=== PATIENT | female | born 1945 ===

== ENCOUNTER 2017-07-30 22:26 | Emergency (ER) | payer MEDICARE ==
[2017-07-30 22:32] VITALS: BMI 25.0
--- NOTE | 2017-07-30 22:53 | ED PDOC ---
Arrival/HPI - General Chief Complaint: Chest Pain Time Seen by Provider: 07/30/17 22:26 Historian: Patient - History of Present Illness Narrative History of Present Illness (Text): 07/30/17 22:54 A 71 year old female presents to the emergency department for evaluation of onset chest discomfort this evening. Patient describes it as pressure, not associated with any shortness of breath. Patient denies any history of fever, chills, cough. Patient denies any leg pain or back pain. Patient states she is not on prescribed medications. Patient also reports history of numbness sensation to her toes for months. Denies any history of any trauma. No difficulty ambulating. Denies any other complaints at this time. Symptom Onset: Sudden Symptom Course: Unchanged Quality: Pressure Activities at Onset: Rest Context: Home Past Medical History - Provider Review Nursing Documentation Reviewed: Yes - Psychiatric Hx Substance Use: No - Surgical History Hx Hysterectomy: Yes Other/Comment: sx right breast - Anesthesia Hx Anesthesia: Yes Hx Anesthesia Reactions: No Hx Malignant Hyperthermia: No Family/Social History - Physician Review Nursing Documentation Reviewed: Yes Family/Social History: No Known Family HX Smoking Status: Never Smoked Hx Alcohol Use: No Hx Substance Use: No Allergies/Home Meds Allergies/Adverse Reactions: Allergies No Known Allergies Allergy (Verified 07/30/17 22:36) Home Medications: Home Meds Medication Instructions Recorded Confirmed No Known Home Med 07/30/17 07/30/17 Review of Systems - Physician Review All systems were reviewed & negative as marked: Yes - Review of Systems Constitutional: absent: Fevers, Other (chills) Respiratory: absent: SOB, Cough Cardiovascular: Other (chest discomfort) Musculoskeletal: Other (numbness sensation in toes; no leg pain). absent: Back Pain Physical Exam Vital Signs Reviewed: Yes Vital Signs Temp Pulse Resp BP Pulse Ox 07/30/17 22:32 98.3 F 75 18 122/65 98 Appearance: Positive for: Well-Appearing, Non-Toxic, Comfortable Pain Distress: None Mental Status: Positive for: Alert and Oriented X 3 - Systems Exam Head: Present: Atraumatic, Normocephalic Pupils: Present: PERRL Extroacular Muscles: Present: EOMI Conjunctiva: Present: Normal Mouth: Present: Moist Mucous Membranes Neck: Present: Normal Range of Motion Respiratory/Chest: Present: Clear to Auscultation, Good Air Exchange. No: Respiratory Distress, Accessory Muscle Use Cardiovascular: Present: Regular Rate and Rhythm, Normal S1, S2. No: Murmurs Abdomen: Present: Normal Bowel Sounds. No: Tenderness, Distention, Peritoneal Signs Back: Present: Normal Inspection Upper Extremity: Present: Normal Inspection, Normal ROM, NORMAL PULSES, Neurovascularly Intact. No: Cyanosis, Edema Lower Extremity: Present: Normal Inspection, NORMAL PULSES, Normal ROM, Neurovascularly Intact. No: Edema Neurological: Present: GCS=15, CN II-XII Intact, Speech Normal Skin: Present: Warm, Dry, Normal Color. No: Rashes Psychiatric: Present: Alert, Oriented x 3, Normal Insight, Normal Concentration Medical Decision Making ED Course and Treatment: 07/30/17 22:50 Impression: A 71 year old female with chest discomfort. Plan: -- EKG -- chest xray -- labs -- Aspirin -- Reassess and disposition Progress Notes: EKG: Ordered, reviewed, and independently interpreted the EKG. Rate : 71 BPM Rhythm : NSR Interpretation : septal infarct, age undetermined, nonspecific ST/T changes 07/30/17 23:[address] Delta Edgar, who accepts patient. 07/31/17 00:24 Chest xray: No acute process, as read by me. - Lab Interpretations Lab Results: 07/30/17 22:50 07/30/17 22:50 Lab Results 07/30/17 22:50: WBC 12.4 H, RBC 4.07, Hgb 10.9 L, Hct 33.2 L, MCV 81.6, MCH 26.8 , MCHC 32.8, RDW 14.7 H, Plt Count 222, MPV 10.9 07/30/17 22:50: Sodium 140, Potassium 3.7, Chloride 104, Carbon Dioxide 24, Anion Gap 15, BUN 20, Creatinine 0.9, Est GFR ( Amer) > 60, Est GFR (Non- Af Amer) > 60, Random Glucose 147 H, Calcium 9.2, Total Bilirubin 0.3, AST 25, ALT 25, Alkaline Phosphatase 90, Lactate Dehydrogenase 336, Total Creatine Kinase 67, Troponin I < 0.01, Total Protein 7.2, Albumin 3.9, Globulin 3.3, Albumin/Globulin Ratio 1.2 07/30/17 22:50: PT 12.0, INR 1.10 H, APTT 28.0 I have reviewed the lab results: Yes - RAD Interpretation Radiology Orders: 07/30/17 22:45 CHEST PORTABLE [RAD] Stat - EKG Interpretation Interpreted by ED Physician: Yes Type: 12 lead EKG - Medication Orders Current Medication Orders: Discontinued Medications Aspirin (Aspirin) 325 mg PO ONCE STA Stop: 07/30/17 22:47 Last Admin: 07/30/17 23:06 Dose: 325 mg - Scribe Statement The provider has reviewed the documentation as recorded by the Joycelyn Wyman Provider Scribe Attestation: All medical record entries made by the Joycelyn were at my direction and personally dictated by me. I have reviewed the chart and agree that the record accurately reflects my personal performance of the history, physical exam, medical decision making, and the department course for this patient. I have also personally directed, reviewed, and agree with the discharge instructions and disposition. Disposition/Present on Arrival - Present on Arrival Any Indicators Present on Arrival: No History of DVT/PE: No History of Uncontrolled Diabetes: No Urinary Catheter: No History of Decub. Ulcer: No History Surgical Site Infection Following: None - Disposition Have Diagnosis and Disposition been Completed?: Yes Diagnosis: Chest pain Disposition: HOSPITALIZED Disposition Time: 23:58 Patient Plan: Observation Patient Problems: Current Active Problems Problem Status Onset Chest pain Acute Condition: STABLE
[2017-07-30 23:06] LABS: HEMATOCRIT 33.2 % (36.0-48.0); MEAN CELL VOLUME 81.6 fl (80.0-105.0); MEAN CORPUSCULAR HEMOGLOBIN 26.8 pg (25.0-35.0); MEAN CORPUSCULAR HGB CONC 32.8 g/dl (31.0-37.0); MEAN PLATELET VOLUME 10.9 fl (7.0-11.0); RED CELL DISTRIBUTION WIDTH 14.7 % (11.5-14.5); WHITE BLOOD COUNT 12.4 10^3/ul (4.5-11.0)
[2017-07-30 23:13] LABS: ALB/GLOB RATIO 1.2 (1.1-1.8); ALKALINE PHOSPHATASE 90 U/L (38-126); ALT/SGPT 25 U/L (7-56); AST/SGOT 25 U/L (14-36); BILIRUBIN,TOTAL 0.3 mg/dL (0.2-1.3); BLOOD UREA NITROGEN 20 mg/dL (7-21); CALCIUM 9.2 mg/dL (8.4-10.5); CARBON DIOXIDE 24 mmol/L (21-33); CHLORIDE 104 mmol/L (98-107); GFR AFRICAN-AMERICAN > 60; GLUCOSE,RANDOM 147 mg/dL (70-110); POTASSIUM 3.7 mmol/L (3.6-5.0); SODIUM 140 mmol/L (132-148); TOTAL PROTEIN 7.2 g/dL (5.8-8.3)
[2017-07-30 23:22] LABS: INR 1.1 (0.93-1.08)
[2017-07-30 23:23] LABS: TROPONIN I < 0.01 ng/mL
--- NOTE | 2017-07-31 00:43 | CP.PCM.HP ---
<Lia Tanner - Last Filed: 07/31/17 01:46> History of Present Illness - History of Present Illness History of Present Illness: 71 year old female with no reported medical history who presents with chest pain at 4:00 PM. Patient reports she had been lifting a lot of bags from shopping recently and after she took a shower she developed some diffuse chest pain, constant in nature, without radiation, pressure-like in character, scaled 7/10 in severity, that improved with taking aspirin. The chest pain was not related to exertion, associated with dyspnea, or diaphoresis; however, it was associated with blurry vision, and preceded by paresthesias in her left foot and right hand. At the time of my encounter, she reports improvement in her symptoms. Other symptoms the patient mentioned were increased in urinary frequency and increase in passing bowel movements, but not diarrhea. PMD: Dr. Ramos Past Surgical History: Right lumpectomy (benign mass), hysterectomy Past Medical History: Denies Social History: Denies alcohol, smoking, or illicit drug use. Family History: Mother had dementia, paternal side suffered from stroke Present on Admission - Present on Admission Any Indicators Present on Admission: No Review of Systems - EENT Eyes: Blurred Vision - Cardiovascular Cardiovascular: Chest Pain. absent: Dyspnea on Exertion, Irregular Heart Rhythm , Leg Edema - Respiratory Respiratory: absent: Cough, Dyspnea, Dyspnea on Exertion - Gastrointestinal Gastrointestinal: Bloating. absent: Nausea, Vomiting - Genitourinary Genitourinary: Urinary Frequency - Musculoskeletal Additional comments: chest wall pain - Integumentary Integumentary: absent: Acne, Alopecia, Change in Pigmentation, Pruritus - Neurological Neurological: Burning Sensations (left foot and right hand). absent: Abnormal Gait - Psychiatric Psychiatric: absent: Anhedonia, Anxiety, Change in Appetite, Difficulty Concentrating - Endocrine Endocrine: absent: Change in Libido, Deepening of Voice, Excessive Sweating - Hematologic/Lymphatic Hematologic: absent: Easy Bleeding, Easy Bruising Past Patient History - Past Social History Smoking Status: Never Smoked - PSYCHIATRIC Hx Substance Use: No - SURGICAL HISTORY Hx Hysterectomy: Yes Other/Comment: sx right breast - ANESTHESIA Hx Anesthesia: Yes Hx Anesthesia Reactions: No Hx Malignant Hyperthermia: No Meds Home Medications: Home Medication List Medication Instructions Recorded Confirmed Type Aspirin 81 mg PO DAILY #15 tab.chew 07/31/17 Rx Nitroglycerin [Nitrostat SL Tab] 0.3 mg SL Q5M #3 tab.subl 07/31/17 Rx Pantoprazole Sodium [Protonix] 40 mg PO DAILY #15 ect 07/31/17 Rx Allergies/Adverse Reactions: Allergies Allergy/AdvReac Type Severity Reaction Status Date / Time No Known Allergies Allergy Verified 07/30/17 22:36 Physical Exam - Constitutional Appears: Well - Head Exam Head Exam: ATRAUMATIC, NORMOCEPHALIC - Eye Exam Eye Exam: EOMI, Normal appearance - ENT Exam ENT Exam: Mucous Membranes Moist, Normal Oropharynx - Neck Exam Neck exam: Positive for: Normal Inspection - Respiratory Exam Respiratory Exam: Clear to Auscultation Bilateral, NORMAL BREATHING PATTERN. absent: Rales - Cardiovascular Exam Cardiovascular Exam: RRR, +S1, +S2 Additional comments: point tenderness to palpation of sternoclavicular region - GI/Abdominal Exam GI & Abdominal Exam: Normal Bowel Sounds, Soft - Extremities Exam Extremities exam: Positive for: normal inspection. Negative for: calf tenderness, joint swelling, pedal edema - Back Exam Back exam: NORMAL INSPECTION. absent: CVA tenderness (L), CVA tenderness (R) - Neurological Exam Neurological exam: Alert, CN II-XII Intact, Normal Gait, Oriented x3 - Psychiatric Exam Psychiatric exam: Normal Affect, Normal Mood - Skin Skin Exam: Dry, Intact, Normal Color, Warm Results - Vital Signs Recent Vital Signs: Last Vital Signs Temp 98.3 F 07/30/17 22:32 Pulse 75 07/30/17 22:32 Resp 18 07/30/17 22:32 BP 122/65 07/30/17 22:32 Pulse Ox 98 07/30/17 22:32 - Labs Result Diagrams: 07/30/17 22:50 07/30/17 22:50 - EKG Data EKG shows normal: Sinus rhythm - EKG Data EKG comments: NSR with moderate voltage criteria for LVH Assessment & Plan - Assessment and Plan (Free Text) Assessment: 71 year old female with no known past medical history who presents with atypical chest pain. Plan: 1) Chest pain, rule out ACS - EKG showed no acute ST-T wave changes - Chest X-ray unremarkable (interpreted by me) - Initial troponin (-), follow up x 2 ordered - TSH, Free T4, and lipid panel within normal limits - HgbA1c pending - Cardiology consulted - Motrin 650 q6h PRN for pain 2) Leukocytosis: WBC of 12,000 without differential - UA and urine culture ordered, patient did complain of polyuria and increase in # of BM per day - Repeat CBC with differential ordered in morning - Afebrile, without upper respiratory complaints. 3) Nutrition - Heart Healthy Diet 4) DVT/GI prophylaxis - Lovenox 30 mg SC daily - Protonix 20 mg PO daily - Date & Time Date: 07/31/17 Time: 01:18 <Tung Edgar - Last Filed: 08/01/17 06:35> Results - Vital Signs Recent Vital Signs: Last Vital Signs Temp 98.3 F 07/30/17 22:32 Pulse 67 07/31/17 02:30 Resp 18 07/31/17 02:30 BP 113/59 L 07/31/17 02:30 Pulse Ox 96 07/31/17 02:30 - Labs Result Diagrams: 07/30/17 22:50 07/30/17 22:50 Additional Comments - Additional Comments Additional Comments: pt with no pmhx came to the er for c/o cp rt sided and left lower costal region ,pt states she was out shopping and lifting heavy things and the pain started at 2pm constant , no associated symtoms , paind is somewhat relieved now with asprin also is c/o frequent urination and increased no of bowel movement nl consultancy.pt is is tender in the chest area,and is found to have normocytic normochromic anemia. and elevated wbc . called lab for diff. and called the er nurse for u/a. the pt has musculoskeletal cp , and will give pain meds and w/u for cad.will hold antibitics pending result of u/a and procalcitonin.
[2017-07-31 00:52] LABS: CHOLESTEROL 146 mg/dL (130-200)
[2017-07-31 01:11] LABS: FREE T4 0.82 ng/dL (0.78-2.19)
[2017-07-31 01:25] LABS: THYROID STIMULATING HORMONE 3.45 mIU/mL (0.46-4.68)
[2017-07-31] MEDS ORDERED: Pantoprazole 20 mg EC Tab PO SCH (06:00)
[2017-07-31 06:47] LABS: RETIC% 1.35 % (0.5-1.5)
[2017-07-31 06:53] LABS: IRON 58 ug/dL (45-180)
[2017-07-31 08:16] LABS: URINE BILIRUBIN NEGATIVE (NEGATIVE); URINE BLOOD TRACE-LYSED (NEGATIVE); URINE GLUCOSE (UA) NEGATIVE (NEGATIVE); URINE KETONE NEGATIVE (NEGATIVE); URINE LEUKOCYTE ESTERASE MODERATE Leu/uL (NEGATIVE); URINE PROTEIN NEGATIVE mg/dL (<30 mg/dL); URINE UROBILINOGEN 0.2 E.U./dL (<1 E.U./dL)
[2017-07-31 08:20] LABS: URINE APPEARANCE SL CLOUDY (CLEAR); URINE COLOR LIGHT YELLOW (YELLOW)
[2017-07-31 08:22] LABS: URINE RBC 0 - 2 /hpf (0-2)
[2017-07-31 08:23] LABS: URINE BACTERIA FEW (NEG)
[2017-07-31 08:31] VITALS: TEMP 97.8
[2017-07-31] MEDS ORDERED: Enoxaparin 30 mg Syringe SC SCH (10:00)
[2017-07-31 11:25] VITALS: RESP 17
[2017-07-31 13:34] VITALS: BP 130/82; PULSE 70; O2SAT 98
--- NOTE | 2017-07-31 15:00 | CP.PCM.DIS ---
<Vishal Carias - Last Filed: 07/31/17 14:52> Provider - Provider Primary care physician: Salvatore Ramos MD Consults: Cardio: Maximiliankind Time Spent in preparation of Discharge (in minutes): 45 Hospital Course - Lab Results Lab Results: Most Recent Lab Values WBC 12.4 10^3/ul (4.5-11.0) H 07/30/17 22:50 RBC 4.07 10^6/uL (3.5-6.1) 07/30/17 22:50 Hgb 10.9 g/dL (12.0-16.0) L 07/30/17 22:50 Hct 33.2 % (36.0-48.0) L 07/30/17 22:50 MCV 81.6 fl (80.0-105.0) 07/30/17 22:50 MCH 26.8 pg (25.0-35.0) 07/30/17 22:50 MCHC 32.8 g/dl (31.0-37.0) 07/30/17 22:50 RDW 14.7 % (11.5-14.5) H 07/30/17 22:50 Plt Count 222 10^3/uL (120.0-450.0) 07/30/17 22:50 MPV 10.9 fl (7.0-11.0) 07/30/17 22:50 Retic Count 1.35 % (0.5-1.5) 07/31/17 06:20 PT 12.0 SECONDS (9.4-12.5) 07/30/17 22:50 INR 1.10 (0.93-1.08) H 07/30/17 22:50 APTT 28.0 Seconds (25.1-36.5) 07/30/17 22:50 Sodium 140 mmol/L (132-148) 07/30/17 22:50 Potassium 3.7 mmol/L (3.6-5.0) 07/30/17 22:50 Chloride 104 mmol/L (98-107) 07/30/17 22:50 Carbon Dioxide 24 mmol/L (21-33) 07/30/17 22:50 Anion Gap 15 (10-20) 07/30/17 22:50 BUN 20 mg/dL (7-21) 07/30/17 22:50 Creatinine 0.9 mg/dl (0.7-1.2) 07/30/17 22:50 Est GFR ( Amer) > 60 07/30/17 22:50 Est GFR (Non-Af Amer) > 60 07/30/17 22:50 Random Glucose 147 mg/dL (70-110) H 07/30/17 22:50 Hemoglobin A1c 6.3 % (4.2-6.5) 07/30/17 22:50 Calcium 9.2 mg/dL (8.4-10.5) 07/30/17 22:50 Iron 58 ug/dL (45-180) 07/31/17 06:20 TIBC 291 ug/dL (265-497) 07/31/17 06:20 % Saturation 20 % (20-55) 07/31/17 06:20 Transferrin 251.92 mg/dL (206-381) 07/31/17 05:40 Total Bilirubin 0.3 mg/dL (0.2-1.3) 07/30/17 22:50 AST 25 U/L (14-36) 07/30/17 22:50 ALT 25 U/L (7-56) 07/30/17 22:50 Alkaline Phosphatase 90 U/L (38-126) 07/30/17 22:50 Lactate Dehydrogenase 336 U/L (333-699) 07/30/17 22:50 Total Creatine Kinase 67 U/L (35-230) 07/30/17 22:50 Troponin I < 0.01 ng/mL 07/31/17 12:40 Total Protein 7.2 g/dL (5.8-8.3) 07/30/17 22:50 Albumin 3.9 g/dL (3.0-4.8) 07/30/17 22:50 Globulin 3.3 gm/dL 07/30/17 22:50 Albumin/Globulin Ratio 1.2 (1.1-1.8) 07/30/17 22:50 Triglycerides 132 mg/dL (35-160) 07/30/17 22:50 Cholesterol 146 mg/dL (130-200) 07/30/17 22:50 LDL Cholesterol Direct 94 mg/dL (0-129) 07/30/17 22:50 HDL Cholesterol 34 mg/dL (29-60) 07/30/17 22:50 Vitamin B12 513 pg/mL (239-931) 07/31/17 06:20 Procalcitonin < 0.05 NG/ML (0.19-0.49) L 07/31/17 05:40 Free T4 0.82 ng/dL (0.78-2.19) 07/30/17 22:50 TSH 3rd Generation 3.45 mIU/mL (0.46-4.68) 07/30/17 22:50 Urine Color Light yellow (YELLOW) 07/31/17 08:01 Urine Appearance Sl cloudy (CLEAR) 07/31/17 08:01 Urine pH 6.0 (4.7-8.0) 07/31/17 08:01 Ur Specific [place] 1.010 (1.005-1.035) 07/31/17 08:01 Urine Protein Negative mg/dL (<30 mg/dL) 07/31/17 08:01 Urine Glucose (UA) Negative mg/dL (NEGATIVE) 07/31/17 08:01 Urine Ketones Negative mg/dL (NEGATIVE) 07/31/17 08:01 Urine Blood Trace-lysed (NEGATIVE) H 07/31/17 08:01 Urine Nitrate Negative (NEGATIVE) 07/31/17 08:01 Urine Bilirubin Negative (NEGATIVE) 07/31/17 08:01 Urine Urobilinogen 0.2 E.U./dL (<1 E.U./dL) 07/31/17 08:01 Ur Leukocyte Esterase Moderate Gretchen/uL (NEGATIVE) H 07/31/17 08:01 Urine RBC 0 - 2 /hpf (0-2) 07/31/17 08:01 Urine WBC 5 - 10 /hpf (0-6) 07/31/17 08:01 Ur Epithelial Cells 1 - 3 /hpf (0-5) 07/31/17 08:01 Urine Bacteria Few (NEG) 07/31/17 08:01 - Hospital Course Hospital Course: 71 year old female with no reported medical history who presents with chest pain at 4:00 PM prior to admission. Patient reported she had been lifting a lot of bags from shopping recently and after she took a shower she developed some diffuse chest pain, constant in nature, without radiation, pressure-like in character, scaled 7/10 in severity, that improved with taking aspirin. The chest pain was not related to exertion, associated with dyspnea, or diaphoresis ; however, it was associated with blurry vision, and preceded by paresthesias in her left foot and right hand. Pt was evaluated for chest pain to rule out acute coronary syndrome. Troponin was negative x3. EKG showed no ST-T wave abnormalities. Cardio was consulted and recommended outpatient stress test and echo. As the patient was acute coronary syndrome was ruled out and pt was medically stable, she was discharged. Patient was instructed to take new medications as prescribed and to follow up with her PMD and university relations recruiter for outpatient work up. Pt acknowledged and agreed. Discharge Diagnosis - Chest pain, ACS ruled out - Possible GERD vs angina Discharge Medications - ASA 81 mg daily - Protonix 40 mg daily - Nitroglycerin 0.3 mg tab SL q5min Discharge Exam - Head Exam Head Exam: ATRAUMATIC, NORMOCEPHALIC - Eye Exam Eye Exam: Normal appearance - ENT Exam ENT Exam: Normal Exam - Respiratory Exam Respiratory Exam: Clear to PA & Lateral. absent: Rales, Rhonchi, Wheezes - Cardiovascular Exam Cardiovascular Exam: RRR, +S1, +S2. absent: Diastolic murmur, Gallop, Rubs, Systolic Murmur - GI/Abdominal Exam GI & Abdominal Exam: Soft. absent: Distended, Firm, Guarding, Rebound, Tenderness - Extremities Exam Extremities exam: normal inspection - Neurological Exam Neurological exam: Alert, Oriented x3 - Psychiatric Exam Psychiatric exam: Normal Affect, Normal Mood - Skin Skin Exam: Dry, Intact, Normal Color, Warm Discharge Plan - Discharge Medications Prescriptions: Aspirin 81 mg PO DAILY #15 tab.chew Nitroglycerin [Nitrostat SL Tab] 0.3 mg SL Q5M #3 tab.subl Pantoprazole Sodium [Protonix] 40 mg PO DAILY #15 ect - Follow Up Plan Condition: STABLE Disposition: HOSPITALIZED Instructions: Chest Pain (DC), Chest Pain (GEN) Additional Instructions: 1. F/u with PMD within 1 week of discharge 2. F/u with university relations recruiter within 1 week of discharge for outpatient stress test and echocardiogram 3. Can continue ASA use as needed 4. Return to ED if symptoms worsen Referrals: Salvatore Ramos MD [Primary Care Provider] - Lionel Nguyen MD [Staff Provider] - <Andrey Bernal - Last Filed: 07/31/17 16:15> Provider - Provider Primary care physician: Salvatore Ramos MD Hospital Course - Lab Results Lab Results: Most Recent Lab Values WBC 12.4 10^3/ul (4.5-11.0) H 07/30/17 22:50 RBC 4.07 10^6/uL (3.5-6.1) 07/30/17 22:50 Hgb 10.9 g/dL (12.0-16.0) L 07/30/17 22:50 Hct 33.2 % (36.0-48.0) L 07/30/17 22:50 MCV 81.6 fl (80.0-105.0) 07/30/17 22:50 MCH 26.8 pg (25.0-35.0) 07/30/17 22:50 MCHC 32.8 g/dl (31.0-37.0) 07/30/17 22:50 RDW 14.7 % (11.5-14.5) H 07/30/17 22:50 Plt Count 222 10^3/uL (120.0-450.0) 07/30/17 22:50 MPV 10.9 fl (7.0-11.0) 07/30/17 22:50 Retic Count 1.35 % (0.5-1.5) 07/31/17 06:20 PT 12.0 SECONDS (9.4-12.5) 07/30/17 22:50 INR 1.10 (0.93-1.08) H 07/30/17 22:50 APTT 28.0 Seconds (25.1-36.5) 07/30/17 22:50 Sodium 140 mmol/L (132-148) 07/30/17 22:50 Potassium 3.7 mmol/L (3.6-5.0) 07/30/17 22:50 Chloride 104 mmol/L (98-107) 07/30/17 22:50 Carbon Dioxide 24 mmol/L (21-33) 07/30/17 22:50 Anion Gap 15 (10-20) 07/30/17 22:50 BUN 20 mg/dL (7-21) 07/30/17 22:50 Creatinine 0.9 mg/dl (0.7-1.2) 07/30/17 22:50 Est GFR ( Amer) > 60 07/30/17 22:50 Est GFR (Non-Af Amer) > 60 07/30/17 22:50 Random Glucose 147 mg/dL (70-110) H 07/30/17 22:50 Hemoglobin A1c 6.3 % (4.2-6.5) 07/30/17 22:50 Calcium 9.2 mg/dL (8.4-10.5) 07/30/17 22:50 Iron 58 ug/dL (45-180) 07/31/17 06:20 TIBC 291 ug/dL (265-497) 07/31/17 06:20 % Saturation 20 % (20-55) 07/31/17 06:20 Transferrin 251.92 mg/dL (206-381) 07/31/17 05:40 Total Bilirubin 0.3 mg/dL (0.2-1.3) 07/30/17 22:50 AST 25 U/L (14-36) 07/30/17 22:50 ALT 25 U/L (7-56) 07/30/17 22:50 Alkaline Phosphatase 90 U/L (38-126) 07/30/17 22:50 Lactate Dehydrogenase 336 U/L (333-699) 07/30/17 22:50 Total Creatine Kinase 67 U/L (35-230) 07/30/17 22:50 Troponin I < 0.01 ng/mL 07/31/17 12:40 Total Protein 7.2 g/dL (5.8-8.3) 07/30/17 22:50 Albumin 3.9 g/dL (3.0-4.8) 07/30/17 22:50 Globulin 3.3 gm/dL 07/30/17 22:50 Albumin/Globulin Ratio 1.2 (1.1-1.8) 07/30/17 22:50 Triglycerides 132 mg/dL (35-160) 07/30/17 22:50 Cholesterol 146 mg/dL (130-200) 07/30/17 22:50 LDL Cholesterol Direct 94 mg/dL (0-129) 07/30/17 22:50 HDL Cholesterol 34 mg/dL (29-60) 07/30/17 22:50 Vitamin B12 513 pg/mL (239-931) 07/31/17 06:20 Procalcitonin < 0.05 NG/ML (0.19-0.49) L 07/31/17 05:40 Free T4 0.82 ng/dL (0.78-2.19) 07/30/17 22:50 TSH 3rd Generation 3.45 mIU/mL (0.46-4.68) 07/30/17 22:50 Urine Color Light yellow (YELLOW) 07/31/17 08:01 Urine Appearance Sl cloudy (CLEAR) 07/31/17 08:01 Urine pH 6.0 (4.7-8.0) 07/31/17 08:01 Ur Specific [place] 1.010 (1.005-1.035) 07/31/17 08:01 Urine Protein Negative mg/dL (<30 mg/dL) 07/31/17 08:01 Urine Glucose (UA) Negative mg/dL (NEGATIVE) 07/31/17 08:01 Urine Ketones Negative mg/dL (NEGATIVE) 07/31/17 08:01 Urine Blood Trace-lysed (NEGATIVE) H 07/31/17 08:01 Urine Nitrate Negative (NEGATIVE) 07/31/17 08:01 Urine Bilirubin Negative (NEGATIVE) 07/31/17 08:01 Urine Urobilinogen 0.2 E.U./dL (<1 E.U./dL) 07/31/17 08:01 Ur Leukocyte Esterase Moderate Gretchen/uL (NEGATIVE) H 07/31/17 08:01 Urine RBC 0 - 2 /hpf (0-2) 07/31/17 08:01 Urine WBC 5 - 10 /hpf (0-6) 07/31/17 08:01 Ur Epithelial Cells 1 - 3 /hpf (0-5) 07/31/17 08:01 Urine Bacteria Few (NEG) 07/31/17 08:01 Attending/Attestation - Attestation I have personally seen and examined this patient.: Yes I have fully participated in the care of the patient.: Yes I have reviewed all pertinent clinical information, including history, physical exam and plan: Yes Notes (Text): 07/31/17 16:12 Patient was seen and examined with medical records supervisor. Agreed with resident assessment and plan. 71 year old female with no reported medical history was admitted with atypical chest pain.EKG is negative for ischemic changes.Serial troponins are normal.Patient was evaluated by cardiology, out patient stress test has been recommended.Patient will be discharged home and will follow up with PCP and cardiology Management plan was discussed in detail with patient Education was provided.
--- NOTE | 2017-07-31 16:46 | RAD ---
HISTORY: chest pain COMPARISON: No prior. FINDINGS: LUNGS: No active pulmonary disease. PLEURA: No significant pleural effusion identified, no pneumothorax apparent. CARDIOVASCULAR: Normal. OSSEOUS STRUCTURES: No significant abnormalities. VISUALIZED UPPER ABDOMEN: Normal. OTHER FINDINGS: None. IMPRESSION: No active disease.
--- NOTE | 2017-07-31 16:53 | CARD ---
APPROVED REPORT EKG Measurement Heart [id number] <Conclusion> Normal sinus rhythm Minimal voltage criteria for LVH, may be normal variant Septal infarct, age undetermined Abnormal ECG
== END 2017-07-31 13:35 | disposition short-term general hospital (02) ==
LOC: MERGE 22:26 → ED 22:26 → UNDOADMOB 23:56 → ERH 23:56
DX: R07.9 Chest pain, unspecified (principal)

== ENCOUNTER 2017-10-17 20:03 | Inpatient (IN) | payer MEDICARE ==
--- NOTE | 2017-10-17 20:26 | ED PDOC ---
Arrival/HPI - General Chief Complaint: Abdominal Pain Time Seen by Provider: 10/17/17 20:03 Historian: Patient - History of Present Illness Narrative History of Present Illness (Text): 10/17/17 20:25 A 71 year old female, whose past medical history includes osteoporosis and possible TIA, presents to the emergency department complaining of dizziness and near-syncope earlier this evening. Patient also notes mild left lower abdominal pain.States she has not been feeling well past 3 days and stopped taking any medication.Patient denies any fever, nausea, vomiting, diarrhea, chest pain, shortness of breath, neck pain, back pain, headache, extremity weakness, speech changes, visual disturbances or any other complaints. Time/Duration: Other (today) Symptom Course: Unchanged Quality: Other Context: Home Past Medical History - Provider Review Nursing Documentation Reviewed: Yes - Gastrointestinal Hx Colitis: Yes - Psychiatric Hx Substance Use: No - Surgical History Hx Hysterectomy: Yes Other/Comment: sx right breast - Anesthesia Hx Anesthesia: Yes Hx Anesthesia Reactions: No Hx Malignant Hyperthermia: No Family/Social History - Physician Review Nursing Documentation Reviewed: Yes Family/Social History: No Known Family HX Smoking Status: Never Smoked Hx Alcohol Use: No Hx Substance Use: No Allergies/Home Meds Allergies/Adverse Reactions: Allergies No Known Allergies Allergy (Verified 06/20/15 03:42) Home Medications: Home Meds Medication Instructions Recorded Confirmed Atorvastatin [Lipitor] 10 mg PO DIN 10/17/17 10/17/17 Clopidogrel [Plavix] 75 mg PO DAILY 10/17/17 10/17/17 Losartan Potassium 25 mg PO DAILY 10/17/17 10/17/17 methylPREDNISolone 4 mg PO DAILY 10/17/17 10/17/17 [Methylprednisolone] Review of Systems - Physician Review All systems were reviewed & negative as marked: Yes - Review of Systems Constitutional: absent: Fevers, Night Sweats Eyes: absent: Vision Changes Respiratory: absent: SOB Cardiovascular: Other (near-syncope). absent: Chest Pain Gastrointestinal: Abdominal Pain (left lower abdomen). absent: Diarrhea, Nausea , Vomiting Musculoskeletal: absent: Back Pain, Neck Pain Neurological: Dizziness. absent: Headache, Focal Weakness, Speech Changes Physical Exam Vital Signs Reviewed: Yes Vital Signs Temp Pulse Resp BP Pulse Ox 10/17/17 20:16 97.8 F 72 18 131/61 97 Temperature: Afebrile Blood Pressure: Normal Pulse: Regular Respiratory Rate: Normal Appearance: Positive for: Well-Appearing, Non-Toxic, Comfortable Pain Distress: None Mental Status: Positive for: Alert and Oriented X 3 - Systems Exam Head: Present: Atraumatic, Normocephalic Pupils: Present: PERRL Extroacular Muscles: Present: EOMI Conjunctiva: Present: Normal Mouth: Present: Moist Mucous Membranes Neck: Present: Normal Range of Motion Respiratory/Chest: Present: Clear to Auscultation, Good Air Exchange. No: Respiratory Distress, Accessory Muscle Use Cardiovascular: Present: Regular Rate and Rhythm, Normal S1, S2. No: Murmurs Abdomen: Present: Tenderness (LLQ tenderness to palpation), Normal Bowel Sounds. No: Distention, Peritoneal Signs, Rebound, Guarding Back: Present: Normal Inspection Upper Extremity: Present: Normal Inspection. No: Cyanosis, Edema Lower Extremity: Present: Normal Inspection. No: Edema Neurological: Present: GCS=15, CN II-XII Intact, Speech Normal Skin: Present: Warm, Dry, Normal Color. No: Rashes Psychiatric: Present: Alert, Oriented x 3, Normal Insight, Normal Concentration Medical Decision Making ED Course and Treatment: 10/17/17 20:25 Impression: A 71 year old female with dizziness and near-syncope. Patient also notes mild left lower abdominal discomfort. Plan: -- Head CT -- Abdomen and pelvis CT -- Chest xray -- EKG -- Labs -- Urinalysis -- Lactated ringer -- Reassess and disposition Progress Notes: Reviewed EKG, NSR at [address] bpm. LVH. Non-specific ST/T wave changes. 10/18/17 01:04 CT Head shows: Brain: Mild cerebral and cerebellar volume loss. Minimal hypodensity is seen in the periventricular cerebral white matter. No hemorrhage. Ventricles: Prominent ventricles. Bones/joints: Unremarkable. No acute fracture. Soft tissues: Unremarkable. Sinuses: Unremarkable. No acute sinusitis. Mastoid air cells: Unremarkable. No mastoid effusion. IMPRESSION: No evidence of an acute intracranial hemorrhage, midline shift or mass effect is identified. 10/18/17 01:07 CT Abdomen and Pelvis shows; Lower thorax: There is bibasilar atelectasis. Small hiatal hernia. ABDOMEN: Liver: Fatty liver. Gallbladder and bile ducts: Cholecystectomy. Pancreas: Unremarkable. No mass. No ductal dilation. Spleen: Unremarkable. No splenomegaly. Adrenals: Unremarkable. No mass. Kidneys and ureters: Unremarkable. No solid mass. No hydronephrosis. Stomach and bowel: Moderate amount of stool in the colon. There are nonspecific fluid filled stomach, small bowel loops. These findings can represent ileus versus gastroenteritis/enteritis versus slow transit versus peristalsis. No obstruction. Appendix: Normal appendix. PELVIS: Bladder: Bladder distention 10.2 cm. Correlation with patient's voiding status is recommended. Reproductive: Uterus is seen. ABDOMEN and PELVIS: Intraperitoneal space: Unremarkable. No free air. No significant fluid collection. Bones/joints: No acute fracture. No dislocation. Soft tissues: Unremarkable. Vasculature: Unremarkable. No abdominal aortic aneurysm. Lymph nodes: Unremarkable. No enlarged lymph nodes. IMPRESSION: 1. No acute findings. 10/18/17 02:[address] Tavera, who is aware and agrees with plan. Accepts pt in to her service. Pt will go to telemetry for near-syncope and UTI. Requests Dr. Brewster and Dr. Almazan on consult. - Lab Interpretations Lab Results: 10/17/17 20:22 10/17/17 20:22 Lab Results 10/17/17 20:46: Urine Color Yellow, Urine Appearance Clear, Urine pH 6.0, Ur Specific [place] 1.010, Urine Protein Negative, Urine Glucose (UA) Negative, Urine Ketones Negative, Urine Blood Trace-intact H, Urine Nitrate Negative, Urine Bilirubin Negative, Urine Urobilinogen 0.2, Ur Leukocyte Esterase Moderate H, Urine RBC 2 - 5, Urine WBC 15 - 20, Ur Epithelial Cells 4 - 5, Amorphous Sediment Few, Urine Bacteria Mod 10/17/17 20:22: WBC 16.4 H D, RBC 4.64, Hgb 12.5, Hct 37.6, MCV 81.0, MCH 26.9, MCHC 33.2, RDW 14.9 H, Plt Count 266, MPV 10.7 10/17/17 20:22: Sodium 143, Potassium 3.8, Chloride 104, Carbon Dioxide 27, Anion Gap 16, BUN 24 H, Creatinine 0.9, Est GFR ( Amer) > 60, Est GFR ( Non-Af Amer) > 60, Random Glucose 90, Calcium 9.4, Total Bilirubin 0.2, AST 30, ALT 24, Alkaline Phosphatase 97, Lactate Dehydrogenase 387, Total Creatine Kinase 29 L, Troponin I < 0.01, Total Protein 7.4, Albumin 4.0, Globulin 3.4, Albumin/Globulin Ratio 1.2 10/17/17 20:22: PT 11.8, INR 1.03, APTT 25.9 I have reviewed the lab results: Yes - RAD Interpretation Radiology Orders: 10/17/17 20:17 HEAD W/O CONTRAST [CT] Stat 10/17/17 20:18 ABD & PELVIS IV CONTRAST ONLY [CT] Stat 10/17/17 20:19 CHEST PORTABLE [RAD] Stat Creative Services Director: Radiologist - EKG Interpretation Interpreted by ED Physician: Yes Type: 12 lead EKG - Medication Orders Current Medication Orders: Ceftriaxone Sodium (Rocephin 1 Gram Ivpb) 1 gm in 100 mls @ 200 mls/hr IV ONCE STA PRN Reason: Protocol Stop: 10/18/17 02:31 Sodium Chloride (Sodium Chloride 0.9%) 1,000 mls @ 100 mls/hr IV .Q10H JOSE Discontinued Medications Lactated Ringer's (Lactated Ringer's) 1,000 mls @ 100 mls/hr IV .Q10H JOSE Last Admin: 10/17/17 20:58 Dose: 100 mls/hr eMAR Start Stop Document 10/17/17 20:58 SS (Rec: 10/17/17 20:58 SS [id number]) Intravenous Solution Start Date 10/17/17 Start Time 20:58 - Scribe Statement The provider has reviewed the documentation as recorded by the Joycelyn De Leon Provider Scribe Attestation: All medical record entries made by the Scribe were at my direction and personally dictated by me. I have reviewed the chart and agree that the record accurately reflects my personal performance of the history, physical exam, medical decision making, and the department course for this patient. I have also personally directed, reviewed, and agree with the discharge instructions and disposition. Disposition/Present on Arrival - Present on Arrival Any Indicators Present on Arrival: No History of DVT/PE: No History of Uncontrolled Diabetes: No Urinary Catheter: No History of Decub. Ulcer: No History Surgical Site Infection Following: None - Disposition Have Diagnosis and Disposition been Completed?: Yes Diagnosis: Near syncope, UTI (urinary tract infection) Disposition: HOSPITALIZED Disposition Time: 02:04 Patient Plan: Observation Condition: STABLE Referrals: [email or web address] Gio Req, [Primary Care Provider] - Follow up with primary Forms: [employer] ([employer]ive[employer])
[2017-10-17] MEDS ORDERED: Lactated Ringer's 1,000 ML IV SCH (20:30)
[2017-10-17 20:34] LABS: HEMOGLOBIN 12.5 g/dL (12.0-16.0); MEAN CORPUSCULAR HEMOGLOBIN 26.9 pg (25.0-35.0); MEAN CORPUSCULAR HGB CONC 33.2 g/dl (31.0-37.0); MEAN PLATELET VOLUME 10.7 fl (7.0-11.0); RBC 4.64 10^6/uL (3.5-6.1); RED CELL DISTRIBUTION WIDTH 14.9 % (11.5-14.5); WHITE BLOOD COUNT 16.4 10^3/ul (4.5-11.0)
[2017-10-17 20:43] LABS: INR 1.03 (0.93-1.08); PROTHROMBIN TIME 11.8 SECONDS (9.4-12.5)
[2017-10-17 20:44] LABS: PARTIAL THROMBOPLASTIN TIME 25.9 Seconds (25.1-36.5)
[2017-10-17 20:46] LABS: ALB/GLOB RATIO 1.2 (1.1-1.8); ALT/SGPT 24 U/L (7-56); AST/SGOT 30 U/L (14-36); BLOOD UREA NITROGEN 24 mg/dL (7-21); CALCIUM 9.4 mg/dL (8.4-10.5); GFR AFRICAN-AMERICAN > 60; GFR NON-AFRICAN AMERICAN > 60
[2017-10-17 20:57] LABS: TROPONIN I < 0.01 ng/mL
[2017-10-17 21:18] LABS: URINE BILIRUBIN NEGATIVE (NEGATIVE); URINE BLOOD TRACE-INTACT (NEGATIVE); URINE GLUCOSE (UA) NEGATIVE (NEGATIVE); URINE LEUKOCYTE ESTERASE MODERATE Leu/uL (NEGATIVE); URINE PROTEIN NEGATIVE mg/dL (<30 mg/dL); URINE UROBILINOGEN 0.2 E.U./dL (<1 E.U./dL)
[2017-10-17 21:19] LABS: URINE APPEARANCE CLEAR (CLEAR); URINE COLOR YELLOW (YELLOW)
[2017-10-17 21:22] LABS: URINE WBC 15 - 20 /hpf (0-6)
[2017-10-17 21:23] LABS: URINE AMORPHOUS SEDIMENT FEW; URINE BACTERIA MOD (NEG)
[2017-10-17] MEDS ORDERED: Iohexol 350 MG/100 ML VIAL ONE (21:57)
--- NOTE | 2017-10-18 01:01 | CT ---
EXAM: CT Head Without Intravenous Contrast CLINICAL HISTORY: 71 years old, female; Signs and symptoms; Dizziness; Additional info: Dizzy/near syncope TECHNIQUE: Axial computed tomography images of the head/brain without intravenous contrast. All CT scans at this facility use one or more dose reduction techniques, viz.: automated exposure control; ma/kV adjustment per patient size (including targeted exams where dose is matched to indication; i.e. head); or iterative reconstruction technique. 327 images are submitted. Coronal and sagittal reformatted images were created and reviewed. Axial reformatted images were created and reviewed. COMPARISON: No relevant prior studies available. FINDINGS: Brain: Mild cerebral and cerebellar volume loss. Minimal hypodensity is seen in the periventricular cerebral white matter. No hemorrhage. Ventricles: Prominent ventricles. Bones/joints: Unremarkable. No acute fracture. Soft tissues: Unremarkable. Sinuses: Unremarkable. No acute sinusitis. Mastoid air cells: Unremarkable. No mastoid effusion. IMPRESSION: No evidence of an acute intracranial hemorrhage, midline shift or mass effect is identified.
--- NOTE | 2017-10-18 01:05 | CT ---
EXAM: CT Abdomen and Pelvis With Intravenous Contrast CLINICAL HISTORY: 71 years old, female; Pain; Abdominal pain; Generalized; Additional info: Loer abdominal pain TECHNIQUE: Axial computed tomography images of the abdomen and pelvis with intravenous contrast. All CT scans at this facility use one or more dose reduction techniques, viz.: automated exposure control; ma/kV adjustment per patient size (including targeted exams where dose is matched to indication; i.e. head); or iterative reconstruction technique. 659 images are submitted. Coronal and sagittal reformatted images were created and reviewed. CONTRAST: 91 mL of OMNI 350 administered intravenously. COMPARISON: No relevant prior studies available. FINDINGS: Lower thorax: There is bibasilar atelectasis. Small hiatal hernia. ABDOMEN: Liver: Fatty liver. Gallbladder and bile ducts: Cholecystectomy. Pancreas: Unremarkable. No mass. No ductal dilation. Spleen: Unremarkable. No splenomegaly. Adrenals: Unremarkable. No mass. Kidneys and ureters: Unremarkable. No solid mass. No hydronephrosis. Stomach and bowel: Moderate amount of stool in the colon. There are nonspecific fluid filled stomach, small bowel loops. These findings can represent ileus versus gastroenteritis/enteritis versus slow transit versus peristalsis. No obstruction. Appendix: Normal appendix. PELVIS: Bladder: Bladder distention 10.2 cm. Correlation with patient's voiding status is recommended. Reproductive: Uterus is seen. ABDOMEN and PELVIS: Intraperitoneal space: Unremarkable. No free air. No significant fluid collection. Bones/joints: No acute fracture. No dislocation. Soft tissues: Unremarkable. Vasculature: Unremarkable. No abdominal aortic aneurysm. Lymph nodes: Unremarkable. No enlarged lymph nodes. IMPRESSION: 1. No acute findings.
[2017-10-18] MEDS: cefTRIAXone 1 gm 1 GM/100 ML BAG IV STA ×2 (02:26→02:54)
[2017-10-18] MEDS: Sodium Chloride 0.9% 1,000 ML IV SCH ×2 (03:35→13:20)
--- NOTE | 2017-10-18 08:49 | RAD ---
HISTORY: Dizziness COMPARISON: 07/31/2017 FINDINGS: LUNGS: No active pulmonary disease. PLEURA: No significant pleural effusion identified, no pneumothorax apparent. CARDIOVASCULAR: No radiographic findings to suggest acute or significant cardiovascular disease. OSSEOUS STRUCTURES: No significant abnormalities. VISUALIZED UPPER ABDOMEN: Normal. OTHER FINDINGS: None. IMPRESSION: No active disease. No significant interval change compared to the prior examination(s).
--- NOTE | 2017-10-18 12:23 | CON ---
DATE: 10/18/2017 NEUROLOGY CONSULTATION CHIEF COMPLAINT: Near syncope. HISTORY OF PRESENT ILLNESS: This is a 71-year-old woman with past medical history of osteoporosis, history of colitis in the past, on Plavix and Lipitor, came in complaining of dizziness, near syncope, lightheadedness and left abdominal pain. She denied any spinning sensation of the room, but is mostly lightheaded, has not been feeling well for the past few days, feeling more fatigue. CAT scan of the head showed no acute intracranial abnormality. CT of the abdomen showed no acute findings. She does have mild possible UTI on urinalysis with elevated leukocyte esterase, which is being worked up, currently following . No focal weakness of the extremities. Carotid Doppler has been ordered. PAST MEDICAL HISTORY: History of UTI, history of TIA, history of colitis and osteoporosis. FAMILY HISTORY: Noncontributory. SOCIAL HISTORY: No illicit drug use, smoking or EtOH abuse. ALLERGIES: NO KNOWN DRUG ALLERGIES. MEDICATIONS: Reviewed by nurse reconciliation sheet. REVIEW OF SYSTEMS: A 14-point review of systems is negative except as per the HPI. LABORATORY DATA: WBC is 16.4, hemoglobin 12.5, hematocrit of 37.6, platelet count 266. Sodium is 143, potassium 3.8, chloride of 104, carbon dioxide 27, BUN of 34, creatinine of 0.9, random glucose of 90. PHYSICAL EXAMINATION: GENERAL: Patient is sitting up in bed, in no acute distress. HEENT: Head is atraumatic, normocephalic. PERRLA. Extraocular muscles intact. NECK: Supple. No JVD, no adenopathy noted. LUNGS: Clear to auscultation. No adventitious sounds. HEART: S1, S2. Normal rate and rhythm. No murmurs, rubs or gallops. ABDOMEN: Soft, nontender, nondistended. Bowel sounds are present. EXTREMITIES: No clubbing, no cyanosis. Peripheral pulses 2+ felt bilaterally. NEUROLOGIC: Patient is alert, oriented to person, place, month and year. Speech is fluent without any errors. Cranial nerves II through XII intact. Motor: Moves all extremities equally. Slightly increased tone throughout. Sensory: Light touch, pinprick, proprioception and vibration intact. DTRs are 2+ throughout and 1 at the ankles. Coordination: [id number] intact. Gait is deferred for now. ASSESSMENT AND PLAN: This is a 71-year-old woman with history of osteoporosis, history of transient ischemic attack in the past, history of colitis who presented with near syncope, transient lightheadedness, abdominal pain on the left side and generalized fatigue. She has mildly elevated BUN mild dehydration with a white blood cell count of 16.4 with leukocytosis and a [id number] leukocyte esterase on urinalysis, possible urinary tract infection. At this time, her near syncope could be secondary to vasovagal component or underlying generalized fatigue with underlying urinary tract infection. RECOMMENDATIONS: At this time, recommend: 1. PT/OT evaluation. 2. Adequate hydration throughout the day. 3. Empiric antibiotics and follow up with ID's recommendations. 4. Continue with aspirin 81, Plavix 75 and Lipitor of 10 for stroke prevention. 5. Carotid Doppler and orthostatic vital signs. Continue current present medical management. Thank you for this consult. Yifan Brewster MD
--- NOTE | 2017-10-18 15:42 | US ---
PROCEDURE: Bilateral carotid artery duplex ultrasound HISTORY: Carotid stenosis sink PHYSICIAN(S): Willian Vital MD. TECHNIQUE: Duplex sonography and color-flow Doppler were used to evaluate the carotid bifurcations and limited segments of the vertebral arteries bilaterally. FINDINGS: There is mild diffuse smooth hypoechoic plaque noted at the carotid bifurcations bilaterally. The peak systolic velocity in the proximal right internal carotid artery is 80 cm/sec. This corresponds to a 20 to 39% proximal right ICA stenosis. Normal systolic velocities are noted in the proximal right external carotid artery. There is antegrade flow in the right vertebral artery. The peak systolic velocity in the proximal left internal carotid artery is 79 cm/sec. This corresponds to a 20 to 39% proximal left ICA stenosis. Normal systolic velocities are noted in the proximal left external carotid artery. There is antegrade flow in the left vertebral artery. IMPRESSION: 1. Bilateral 20-39% proximal ICA stenoses. 2. Antegrade flow in both vertebral arteries.
--- NOTE | 2017-10-18 16:42 | CP.PCM.HP ---
<TrayClaire Arminda - Last Filed: 10/18/17 16:39> History of Present Illness - History of Present Illness History of Present Illness: Chief complaint: dizziness, rash R buttock 71 yr female resident w/ history of Hyperlipidemia, CAD, osteoporosis, TIA, hysterectomy, R breast surgery, Colitis & HTN. She reports feeling abdominal pain LLQ and not taking her medications for the past 3 days. Pt admitted to [facility] for near syncope, UTI & leukocytosis. Today, pt seen at the bedside with complaints of a recurrent rash on her R buttock. She has been treating it with lotrisone cream prescribed by her PMD. She is concerned that her WBC have been elevated in blood work. Pt denies nausea, vomiting, fever chills, diarrhea, constipation, shortness of breath, chest pain, paresthesias, or urinary changes. Present on Admission - Present on Admission Any Indicators Present on Admission: No History of DVT/PE: No History of Uncontrolled Diabetes: No Urinary Catheter: No Decubitus Ulcer Present: No Review of Systems - Constitutional Constitutional: As Per HPI - EENT Eyes: As Per HPI Ears: As Per HPI Nose/Mouth/Throat: As Per HPI - Breasts Breasts: As Per HPI - Cardiovascular Cardiovascular: As Per HPI - Respiratory Respiratory: As Per HPI - Gastrointestinal Gastrointestinal: As Per HPI - Genitourinary Genitourinary: As Per HPI - Menstruation Menstruation: As Per HPI - Musculoskeletal Musculoskeletal: As Per HPI - Integumentary Integumentary: As Per HPI - Neurological Neurological: As Per HPI - Psychiatric Psychiatric: As Per HPI - Endocrine Endocrine: As Per HPI - Hematologic/Lymphatic Hematologic: As Per HPI Past Patient History - Past Social History Smoking Status: Never Smoked - CARDIAC Hx Cardiac Disorders: Yes - MUSCULOSKELETAL/RHEUMATOLOGICAL Hx Falls: Yes - GASTROINTESTINAL Hx Colitis: Yes Other/Comment: colitis - PSYCHIATRIC Hx Substance Use: No - SURGICAL HISTORY Hx Hysterectomy: Yes - ANESTHESIA Hx Anesthesia: Yes Hx Anesthesia Reactions: No Hx Malignant Hyperthermia: No Meds Allergies/Adverse Reactions: Allergies Allergy/AdvReac Type Severity Reaction Status Date / Time No Known Allergies Allergy Verified 06/20/15 03:42 Physical Exam - Constitutional Appears: Well - Head Exam Head Exam: ATRAUMATIC, NORMAL INSPECTION, NORMOCEPHALIC - Eye Exam Eye Exam: EOMI, Normal appearance, PERRL Pupil Exam: NORMAL ACCOMODATION, PERRL - ENT Exam ENT Exam: Mucous Membranes Moist, Normal Exam - Neck Exam Neck exam: Positive for: Normal Inspection - Respiratory Exam Respiratory Exam: Clear to Auscultation Bilateral, NORMAL BREATHING PATTERN - Cardiovascular Exam Cardiovascular Exam: REGULAR RHYTHM - GI/Abdominal Exam GI & Abdominal Exam: Normal Bowel Sounds, Soft. absent: Tenderness - Back Exam Back exam: NORMAL INSPECTION - Neurological Exam Neurological exam: Alert, Oriented x3, Reflexes Normal - Psychiatric Exam Psychiatric exam: Normal Affect, Normal Mood - Skin Skin Exam: Rash Additional comments: vesicular rash R buttock Results - Vital Signs Recent Vital Signs: Last Vital Signs Temp 98 F 10/18/17 11:36 Pulse 68 10/18/17 11:36 Resp 18 10/18/17 11:36 BP 121/63 10/18/17 11:36 Pulse Ox 93 L 10/18/17 06:00 - Labs Result Diagrams: 10/17/17 20:22 10/17/17 20:22 Assessment & Plan (1) Dehydration Status: Acute (2) Rash, vesicular Status: Acute (3) Leukocytosis Status: Acute (4) Constipation Status: Acute (5) Hematuria Status: Acute (6) Bladder distension Status: Acute (7) Near syncope Status: Acute (8) UTI (urinary tract infection) Status: Acute (9) Gastroenteritis Status: Acute - Assessment and Plan (Free Text) Plan: Labs, blood culture ordered. HSV workup. Urine culture pending. Bladder scan ordered. Prescribed colace & miralax for constipation. PT & OT. GI/VTE prophylaxis. Consults: Cardio - Dr. Lucia Almazan Neuro - Dr. Brewster GI - Dr. Rodriguez Reviewed: Carotid Artery US = bilateral 20-39% proximal ICA stenosis CXR = WNL CT abd/pelvis = mod amount of stool in colon, nonspecific fluid stomach, small bowel loops, ileus vs. gastroenteritis vs. slow transit vs. peristalsis, bladder distension CT head = mild cerebral & cerebellar volume loss, minimal hypodensity in periventricular cerebral white matter ECG = [place], NSR, min voltage criteria LVH, maybe normal variant - Date & Time Date: 10/18/17 Time: 11:40 <Nely Tavera - Last Filed: 10/19/17 22:34> Results - Vital Signs Recent Vital Signs: Last Vital Signs Temp 98.5 F 10/19/17 17:53 Pulse 77 10/19/17 21:14 Resp 19 10/19/17 17:53 BP 114/69 10/19/17 17:53 Pulse Ox 98 10/19/17 06:00 - Labs Result Diagrams: 10/19/17 06:30 10/19/17 06:30 Assessment & Plan - Assessment and Plan (Free Text) Plan: 71 yr female resident w/ history of Hyperlipidemia, CAD, osteoporosis, TIA, hysterectomy, R breast surgery, Colitis & HTN. She reports feeling abdominal pain LLQ and not taking her medications for the past 3 days. Pt admitted to [facility] for near syncope, UTI & leukocytosis. Today, pt seen at the bedside with complaints of a recurrent rash on her R buttock. She has been treating it with lotrisone cream prescribed by her PMD. She is concerned that her WBC have been elevated in blood work. Pt denies nausea, vomiting, fever chills, diarrhea, constipation, shortness of breath, chest pain, paresthesias, or urinary change pt is seen and examined at bed side , looking comfortable . d/ d with [facility] , will f/u chart , meds and labs noted
--- NOTE | 2017-10-18 17:19 | CARD ---
APPROVED REPORT EKG Measurement Heart [id number] <Conclusion> Normal sinus rhythm Minimal voltage criteria for LVH, may be normal variant Borderline ECG
[2017-10-19] MEDS: Sodium Chloride 0.9% 1,000 ML IV SCH ×3 (00:52→17:18)
[2017-10-19 07:05] LABS: BASO # 0.02 K/mm3 (0.0-2.0); BASO % 0.2 % (0.0-3.0); EOS # 0.2 (0.0-0.7); EOS % 1.6 % (1.5-5.0); GRAN # 7.03 (1.4-6.5); GRAN % 71.5 % (50.0-68.0); HEMOGLOBIN 11.8 g/dL (12.0-16.0); LYMPH % 20.5 % (22.0-35.0); MEAN CELL VOLUME 81.4 fl (80.0-105.0); MEAN CORPUSCULAR HEMOGLOBIN 26.4 pg (25.0-35.0); MEAN CORPUSCULAR HGB CONC 32.4 g/dl (31.0-37.0); MEAN PLATELET VOLUME 10.7 fl (7.0-11.0); MONO # 0.6 (0.1-0.6); MONO % 6.2 % (1.0-6.0); RBC 4.47 10^6/uL (3.5-6.1); WHITE BLOOD COUNT 9.8 10^3/ul (4.5-11.0)
[2017-10-19 07:28] LABS: ALB/GLOB RATIO 1.1 (1.1-1.8); ALBUMIN 3.3 g/dL (3.0-4.8); ALT/SGPT 33 U/L (7-56); AST/SGOT 29 U/L (14-36); BLOOD UREA NITROGEN 15 mg/dL (7-21); CALCIUM 9.2 mg/dL (8.4-10.5); GFR AFRICAN-AMERICAN > 60; GFR NON-AFRICAN AMERICAN > 60
--- NOTE | 2017-10-19 09:54 | CON ---
DATE: 10/18/2017 LOCATION: The patient was seen earlier today in room 376, bed 2. CHIEF COMPLAINT: Weakness times several days. HISTORY OF PRESENT ILLNESS: This is a 71-year-old female with a history of coronary artery disease, hyperlipidemia, TIA, osteoporosis, hypertension and colitis and abdominal pain and patient had not been feeling herself for several months according to the patient and was admitted to the hospital for further workup. Patient had no fevers or chills. No diarrhea or constipation. No shortness of breath. No chest pain. She was seem by a neurologist outpatient and another neurologist; she does not recall the names and she was admitted with a diagnoses of near syncope and urinary tract infection. At this time, she denies any urinary tract infection symptoms. No dysuria or frequency. PAST MEDICAL HISTORY: Significant for coronary artery disease, hyperlipidemia, hypertension,colitis, TIA and osteoporosis. PAST SURGICAL HISTORY: Significant for hysterectomy and right breast lumpectomy. ALLERGIES: THE PATIENT HAS NO KNOWN ALLERGIES. MEDICATIONS AT HOME: Include Plavix and nitroglycerin, losartan, atorvastatin and aspirin. PHYSICAL EXAMINATION: GENERAL: On exam, the patient is in bed, comfortable with no acute distress. Her is at bedside. VITAL SIGNS: Temperature is 98, blood pressure is 120/60, respiratory rate of 18, heart rate of 68. HEENT: Unremarkable. NECK: Supple. LUNGS: Decreased breath sounds. HEART: Normal S1, S2. ABDOMEN: Soft, nontender. No rebound or guarding. LABORATORY DATA: Laboratory examination reveals the patient's white count of 16,400, hemoglobin of 12, platelets of 266. Coagulation is noted. Chemistry reveals a BUN of 24,, creatinine of 0.9. Urinalysis is noted, 15-[address] Brewster's consultation is noted. He feels that the near syncope could be a vasovagal component. The patient had a carotid artery ultrasound, bilateral 20%-39% proximal ICA stenosis. Emergency room chart is reviewed, written by Dr. Michele Pemberton. Patient also had a chest x-ray with no active disease and a CAT scan of the abdomen and pelvis - no acute findings. CAT scan of the head is noted, completely unremarkable. ASSESSEMNT AND PLAN: This is a 71-year-old female, no recent travel. She is originally from [place] with a history of coronary artery disease, hyperlipidemia, transient ischemic attack, osteoporosis, hypertension and colitis. Admitted: 1. Leukocytosis, 17,000. 2. Urinary tract infection although she has no symptoms and blood cultures have been ordered and etiology of the leukocytosis is not entirely clear. We will check on a CBC in the a.m. Continue ceftriaxone for now. We will further recommendation upon availability of the initial results. Chip Almazan MD
[2017-10-19] MEDS: cefTRIAXone 1 gm 1 GM/100 ML BAG IVPB SCH (09:56)
[2017-10-19] MEDS: POLYETHYLENE GLYCOL 3350 17 GM/Dose PACKET PO SCH ×2 (09:56→17:18)
[2017-10-19] MEDS ORDERED: POLYETHYLENE GLYCOL 3350 17 GM/Dose PACKET PO SCH (10:00)
--- NOTE | 2017-10-19 15:35 | CARD ---
APPROVED REPORT EXAM: Two-dimensional and M-mode echocardiogram with Doppler and color Doppler. INDICATION Chest Pain 2D DIMENSIONS Left Atrium (2D)3.1 (1.6-4.0cm)IVSd1.4 (0.7-1.1cm) LVDd3.9 (3.9-5.9cm)PWd1.0 (0.7-1.1cm) LVDs2.8 (2.5-4.0cm)FS (%) 29.7 % LVEF (%)57.3 (>50%) M-Mode DIMENSIONS Aortic Root2.20 (2.2-3.7cm)Aortic Cusp Exc.1.80 (1.5-2.0cm) Aortic Valve AoV Peak Yuqegeyu520.0cm/Janneth Peak GR.6mmHg Mitral Valve MV E Wkxubnvn65.7cm/sMV A Tmyxfwsu59.8cm/sE/A ratio0.7 TDI E/Lateral E'0.0E/Medial E'0.0 Tricuspid Valve TR Peak Hwhzfwcc844mo/sRAP [id number] Peak Gr.21mmHg [id number] LEFT VENTRICLE The left ventricle is normal size. There is borderline to mild concentric left ventricular hypertrophy. The left ventricular function is normal.EF-55-60% There is normal LV segmental wall motion. Transmitral Doppler flow pattern is Grade III-reversible restrictive diastolic dysfunction. No left ventricle thrombus noted on this study. There is no ventricular septal defect visualized. There is no left ventricular aneurysm. There is no mass noted in the left ventricle. RIGHT VENTRICLE The right ventricle is normal size. There is normal right ventricular wall thickness. The right ventricular systolic function is normal. ATRIA The left atrium size is normal. The right atrium size is normal. The interatrial septum is intact with no evidence for an atrial septal defect. AORTIC VALVE The aortic valve is thickened but opens well. No aortic regurgitation is present. There is no aortic valvular stenosis. There is no aortic valvular vegetation. MITRAL VALVE The mitral valve is thickened but opens well. Mitral regurgitation is trace. There is no mitral valve stenosis. There is no evidence of mitral valve prolapse. TRICUSPID VALVE The tricuspid valve leaflets are thickened , but open well. There is mild to moderate tricuspid regurgitation.[id number]_31 mmof hg. There is no tricuspid valve stenosis. There is no tricuspid valve prolapse or vegetation. PULMONIC VALVE The pulmonary valve is normal in structure. There is no pulmonic valvular regurgitation. There is no pulmonic valvular stenosis. GREAT VESSELS The aortic root is normal in size. The ascending aorta is normal in size. The pulmonary artery is normal. The IVC is normal in size and collapses >50% with inspiration. PERICARDIAL EFFUSION There is no pleural effusion. There is no pericardial effusion. <Conclusion> The left ventricle is normal size. There is borderline to mild concentric left ventricular hypertrophy. The left ventricular function is normal.EF-55-60% Mitral regurgitation is trace. There is mild to moderate tricuspid regurgitation.RVSP_31 mmof hg. no vegetarion or hrombus noted.
[2017-10-19] MEDS: Vancomycin 1gm in NS 250ml 1 GM/250 ML BAG IVPB SCH (18:08)
[2017-10-19] MEDS: cefTRIAXone 1 gm 1 GM/100 ML BAG IV STA (21:28)
--- NOTE | 2017-10-19 22:25 | PN ---
DATE: 10/19/2017 SUBJECTIVE: The patient is in bed, in no acute distress, nontoxic. PHYSICAL EXAMINATION: VITAL SIGNS: Temperature is 98, blood pressure is 116/60, respiratory rate of 88. HEENT: Examination of HEENT is unremarkable. NECK: Supple. LUNGS: Have decreased breath sounds. HEART: Normal S1, S2. ABDOMEN: Soft. LABORATORY DATA: Laboratory examination reveals a white count is 9.8, hemoglobin 11, platelets of 202. Chemistries are noted. BUN of 15, creatinine of 0.8. Urinalysis is noted. Microbiology reveals a gram-positive cocci in the urine. Review of orders reveals the patient to be on ceftriaxone. ASSESSMENT AND PLAN: A 71-year-old female with a history of coronary artery disease, hyperlipidemia, transient ischemic attack, osteoporosis, hypertension, colitis, admitted with gram-positive cocci urinary tract infection and leukocytosis. We will add vancomycin pending identification and sensitivity of gram-positive cocci. We will make further recommendations. Chip Almazan MD
[2017-10-20 00:06] VITALS: RESP 18
--- NOTE | 2017-10-20 00:07 | CON ---
DATE: 10/19/2017 REASON FOR CONSULTATION: Followup cardiac evaluation, abdominal pain, near syncope. BRIEF CLINICAL HISTORY: This is a 71-year-old female with a past medical history significant for hyperlipidemia, osteoporosis, TIA, hysterectomy in the past, history of colitis and hypertension, was having abdominal pain for a couple of days. Yesterday, the patient feeling that she would pass out and came to the Emergency Room. Denies any chest pain, denies any dyspnea, exertional chest pain on exertion. Does complain of some shortness of breath on exertion and feels tired. PAST MEDICAL HISTORY: Significant for hypertension and hyperlipidemia. No family history of coronary artery disease. PAST SURGICAL HISTORY: Significant for cholecystectomy. SOCIAL HISTORY: Denies smoking. Denies any history of alcohol abuse. MEDICATIONS: Current medications patient is taking at home are Plavix, losartan, atorvastatin, aspirin, prednisone. REVIEW OF SYSTEMS: As per HPI. PHYSICAL EXAMINATION: VITAL SIGNS: Temperature afebrile, heart rate 65, blood pressure 107/63. HEENT: PERRLA. Extraocular muscles intact. NECK: Supple. No carotid bruits. No thyromegaly. CHEST: Clear to auscultation. HEART: S1 and S2, regular. ABDOMEN: Soft. EXTREMITIES: Clubbing and cyanosis, negative. LABORATORY DATA: Blood workup as follows: WBC 9.8, hemoglobin 11.8, hematocrit 36.4, platelet count 202. Chemistry shows sodium 143, potassium 4.1, chloride 108, carbon dioxide 27, anion gap of 11, BUN 15, creatinine 0.8. IMPRESSION: Atypical chest pain, no history of coronary artery disease. Patient is on Plavix, said that she had been followed in Neurology and an MRI was done that shows probably a silent stroke since the patient is on the blood thinner, that is, on Plavix. History of hypertension and hyperlipidemia. RECOMMENDATION: We will get a lipid profile, TSH, hemoglobin A1c. Echo to assess LV function. Check orthostatic hypotension. Because of multiple risks factors, would suggest stress test as outpatient in 1 to 2 weeks. Arrangements were made to follow up on stress test in 1 to 2 weeks, until the patient's acute symptoms of abdominal pain subsides. No angina symptom at this point. We will follow with you. Thank you Dr. Tavera, for providing us the opportunity in taking care of the patient, Nivia Lisa. Andrey Azul MD [facility] # [id number]
--- NOTE | 2017-10-20 02:27 | PN ---
DATE: SUBJECTIVE: The patient was seen and examined on the bedside, looking comfortable. No nausea, vomiting or diarrhea. No hematuria or hematochezia. No swelling of the leg. No chest pain. No fever, no chills. Still having back pain. PHYSICAL EXAMINATION VITAL SIGNS: Temperature 98.5, pulse 57, respiratory rate 19, blood pressure 114/59. HEENT: Head: Normocephalic, atraumatic. Eyes: PERRLA. Extraocular muscles intact. Conjunctivae clear. Nose: Patent. NECK: Supple. No carotid bruit, JVD, or thyromegaly. CHEST: Bilaterally symmetrical. HEART: S1 and S2 positive. LUNGS: Clear to auscultation. ABDOMEN: Soft. Bowel sounds present. No organomegaly. EXTREMITIES: No edema, no cyanosis. NEUROLOGIC: The patient is awake and alert. Moving all 4 extremities. No focal deficits. MEDICATIONS: Aspirin, Colace, Cozaar, Lipitor, MiraLax, nitroglycerin, Plavix, NS, Tylenol, vancomycin. LABORATORY DATA: White blood cells 9.8, hemoglobin 11.8, hematocrit 36.4, platelets 202. Sodium 143, potassium 4.1, BUN 15, creatinine 0.8, glucose 103. ASSESSMENT AND PLAN: Ms. Lisa Gonzáles is a 71-year-old lady with history of leukocytosis, improved, anemia, hyperchloremia, hematuria, urinary tract infection, seen by Dr. Chip Almazan, Infectious Disease specialist. The patient has history of coronary artery disease, hypercholesterolemia, hypertension, colitis, transient ischemic attack, osteoporosis, came with weakness. She has no symptoms, and blood cultures have been ordered, and etiology of the leukocytosis is not entirely clear yet as per Infectious Disease. We will continue checking labs and we will see the trend. Continue ceftriaxone. Waiting for the cultures. Seen by Dr. Yifan Brewster. ultrasound is done, history of transient ischemic attack, came with near syncope. According to Neurology, near syncope could be due to vasovagal. Underlying generalized fatigue, underlying urinary tract infection. We will continue physical therapy and occupational therapy, adequate hydration throughout the day, empiric antibiotics. Continue aspirin, Plavix, Lipitor. Gastrointestinal and deep venous thrombosis prophylaxis. CAT scan of the head done. CAT scan of the abdomen and pelvis done, no acute finding. Repeat labs. We will follow. Nely Tavera MD [facility] # [id number] [facility]SE
[2017-10-20] MEDS: Vancomycin 1gm in NS 250ml 1 GM/250 ML BAG IVPB SCH (04:58)
[2017-10-20] MEDS: Sodium Chloride 0.9% 1,000 ML IV SCH (04:59)
[2017-10-20 05:52] VITALS: O2SAT 100
[2017-10-20 07:55] LABS: BASO # 0.02 K/mm3 (0.0-2.0); BASO % 0.2 % (0.0-3.0); EOS # 0.2 (0.0-0.7); EOS % 1.8 % (1.5-5.0); GRAN # 6.66 (1.4-6.5); GRAN % 70.8 % (50.0-68.0); HEMOGLOBIN 11.7 g/dL (12.0-16.0); LYMPH # 2.1 (1.2-3.4); LYMPH % 21.9 % (22.0-35.0); MEAN CELL VOLUME 81.3 fl (80.0-105.0); MEAN CORPUSCULAR HEMOGLOBIN 26.3 pg (25.0-35.0); MEAN CORPUSCULAR HGB CONC 32.3 g/dl (31.0-37.0); MEAN PLATELET VOLUME 10.5 fl (7.0-11.0); MONO # 0.5 (0.1-0.6); MONO % 5.3 % (1.0-6.0); RBC 4.45 10^6/uL (3.5-6.1); WHITE BLOOD COUNT 9.4 10^3/ul (4.5-11.0)
[2017-10-20 08:07] LABS: IRON 56 ug/dL (45-180)
[2017-10-20 08:10] LABS: ALB/GLOB RATIO 1.1 (1.1-1.8); ALBUMIN 3.5 g/dL (3.0-4.8); ALT/SGPT 32 U/L (7-56); AST/SGOT 33 U/L (14-36); BLOOD UREA NITROGEN 16 mg/dL (7-21); CALCIUM 9.6 mg/dL (8.4-10.5); GFR AFRICAN-AMERICAN > 60; GFR NON-AFRICAN AMERICAN > 60; HDL CHOLESTEROL 34 mg/dL (29-60)
[2017-10-20 08:17] LABS: % IRON SATURATION 20 % (20-55); TOTAL IRON BINDING CAPACITY 287 ug/dL (265-497)
[2017-10-20 08:21] LABS: LDL CHOLESTEROL 77 mg/dL (0-129)
[2017-10-20] MEDS: POLYETHYLENE GLYCOL 3350 17 GM/Dose PACKET PO SCH (10:17)
[2017-10-20] MEDS: cefTRIAXone 1 gm 1 GM/100 ML BAG IVPB SCH (10:17)
--- NOTE | 2017-10-20 11:33 | CON ---
DATE: 10/19/2017 REASON FOR CONSULTATION: Abdominal pain, rule out enteritis. HISTORY OF PRESENT ILLNESS: This 71-year-old patient with a past medical history of coronary artery disease, TIA, status post hysterectomy, colitis and hypertension, admitted with complaints of abdominal discomfort for the past 3 days. It is a cramping type of discomfort. The patient was admitted for weakness and near syncopal episode. Also, the patient was found to have urinary tract infection with leukocytosis and positive urinalysis with culture showed gram-positive cocci . A CT scan of abdomen and pelvis showed moderate amount of stools in the colon and nonspecific fluid-filled stomach and small bowel loops, gastroenteritis . GI consult was requested to evaluate this. OTHER PAST MEDICAL HISTORY: Significant as above. History of coronary artery disease, TIA, osteoporosis. SURGICAL HISTORY: Significant for hysterectomy, right breast lumpectomy. ALLERGIES: SHE HAS NO KNOWN DRUG ALLERGIES. SOCIAL HISTORY: Denies any smoking or alcohol. REVIEW OF SYSTEMS: Positive as above. History of episodes of constipation present. PHYSICAL EXAMINATION: GENERAL: Patient is lying in the bed, not in acute distress. VITAL SIGNS: Temperature is 98.5, pulse 67, blood pressure 114/69, respirations 19. HEENT: Atraumatic, anicteric. NECK: Supple. HEART: S1 and S2 heard. LUNGS: Bilateral air entry present. ABDOMEN: Soft. There is no mass palpable. No tenderness. NEUROLOGICAL: Alert, oriented, moves all the extremities. LABORATORY DATA: Hemoglobin 11.8; hematocrit 36.4; WBC 9.8, initially, it was elevated to 16.4. LFTs and chemistry essentially unremarkable. Urinalysis shows leukocyte esterase, moderate, wbc's 15-20. Urine culture showed gram-positive cocci greater than 100,000. The CT scan findings as described as above. IMPRESSION AND PLAN: This is a 71-year-old patient admitted with abdominal discomfort, leukocytosis. CT shows some nonspecific fluid-filled stomach and small bowel loops. 1. Abdominal discomfort. 2. Urinary tract infection. Urine culture shows greater than 100,000 gram-positive cocci. 3. Rule out gastroenteritis and this is differential diagnosis. Other past medical history includes coronary artery disease, transient ischemic attack, osteoporosis, hysterectomy and breast surgery. The patient is recommended endoscopy and colonoscopy. The patient had about 2 to 3 years ago esophagogastroduodenoscopy, she remembers having told that is gastritis, some inflammation of the esophagus. Colonoscopy had history of polyps in the past. Last colonoscopy, no polyps as per patient RECOMMENDATIONS: 1. Follow up of the sensitivity of the urine culture results and continue the antibiotics per ID. 2. We will continue to closely followup her care. Suggest further management based on clinical course. Thank you very much for allowing us to participate in the care of the patient. Catherine Rodriguez MD [facility]
--- NOTE | 2017-10-20 12:33 | CP.PCM.DIS ---
<Claire Feliz - Last Filed: 10/20/17 12:27> Provider - Provider Date of Admission: 10/19/17 12:31 Attending physician: Nely Tavera MD Consults: Cardio - Dr. Lucia APONTE - Dr. Almazan Neuro - Dr. Brewster GI - Dr. Rodriguez Time Spent in preparation of Discharge (in minutes): 45 Diagnosis - Discharge Diagnosis (1) Dehydration Status: Acute (2) Rash, vesicular Status: Acute (3) Leukocytosis Status: Acute (4) Constipation Status: Acute (5) Hematuria Status: Acute (6) Bladder distension Status: Acute (7) Near syncope Status: Acute (8) UTI (urinary tract infection) Status: Acute (9) Gastroenteritis Status: Acute Hospital Course - Lab Results Lab Results: Most Recent Lab Values WBC 9.4 10^3/ul (4.5-11.0) 10/20/17 07:15 RBC 4.45 10^6/uL (3.5-6.1) 10/20/17 07:15 Hgb 11.7 g/dL (12.0-16.0) L 10/20/17 07:15 Hct 36.2 % (36.0-48.0) 10/20/17 07:15 MCV 81.3 fl (80.0-105.0) 10/20/17 07:15 MCH 26.3 pg (25.0-35.0) 10/20/17 07:15 MCHC 32.3 g/dl (31.0-37.0) 10/20/17 07:15 RDW 15.0 % (11.5-14.5) H 10/20/17 07:15 Plt Count 200 10^3/uL (120.0-450.0) 10/20/17 07:15 MPV 10.5 fl (7.0-11.0) 10/20/17 07:15 Gran % 70.8 % (50.0-68.0) H 10/20/17 07:15 Lymph % (Auto) 21.9 % (22.0-35.0) L 10/20/17 07:15 [place] % (Auto) 5.3 % (1.0-6.0) 10/20/17 07:15 Eos % (Auto) 1.8 % (1.5-5.0) 10/20/17 07:15 Baso % (Auto) 0.2 % (0.0-3.0) 10/20/17 07:15 Gran # 6.66 (1.4-6.5) H 10/20/17 07:15 Lymph # (Auto) 2.1 (1.2-3.4) 10/20/17 07:15 [place] # (Auto) 0.5 (0.1-0.6) 10/20/17 07:15 Eos # (Auto) 0.2 (0.0-0.7) 10/20/17 07:15 Baso # (Auto) 0.02 K/mm3 (0.0-2.0) 10/20/17 07:15 PT 11.8 SECONDS (9.4-12.5) 10/17/17 20:22 INR 1.03 (0.93-1.08) 10/17/17 20:22 APTT 25.9 Seconds (25.1-36.5) 10/17/17 20:22 Sodium 142 mmol/L (132-148) 10/20/17 07:15 Potassium 4.2 mmol/L (3.6-5.0) 10/20/17 07:15 Chloride 108 mmol/L (98-107) H 10/20/17 07:15 Carbon Dioxide 26 mmol/L (21-33) 10/20/17 07:15 Anion Gap 12 (10-20) 10/20/17 07:15 BUN 16 mg/dL (7-21) 10/20/17 07:15 Creatinine 0.9 mg/dl (0.7-1.2) 10/20/17 07:15 Est GFR ( Amer) > 60 10/20/17 07:15 Est GFR (Non-Af Amer) > 60 10/20/17 07:15 Random Glucose 104 mg/dL (70-110) 10/20/17 07:15 Hemoglobin A1c 6.3 % (4.2-6.5) 10/20/17 07:15 Calcium 9.6 mg/dL (8.4-10.5) 10/20/17 07:15 Phosphorus 3.8 mg/dL (2.5-4.5) 10/20/17 07:15 Magnesium 1.9 mg/dL (1.7-2.2) 10/20/17 07:15 Iron 56 ug/dL (45-180) 10/20/17 07:15 TIBC 287 ug/dL (265-497) 10/20/17 07:15 % Saturation 20 % (20-55) 10/20/17 07:15 Total Bilirubin 0.4 mg/dL (0.2-1.3) 10/20/17 07:15 AST 33 U/L (14-36) 10/20/17 07:15 ALT 32 U/L (7-56) 10/20/17 07:15 Alkaline Phosphatase 92 U/L (38-126) 10/20/17 07:15 Lactate Dehydrogenase 387 U/L (333-699) 10/17/17 20:22 Total Creatine Kinase 29 U/L (35-230) L 10/17/17 20:22 Troponin I < 0.01 ng/mL 10/17/17 20:22 Total Protein 6.7 g/dL (5.8-8.3) 10/20/17 07:15 Albumin 3.5 g/dL (3.0-4.8) 10/20/17 07:15 Globulin 3.2 gm/dL 10/20/17 07:15 Albumin/Globulin Ratio 1.1 (1.1-1.8) 10/20/17 07:15 Triglycerides 165 mg/dL (35-160) H 10/20/17 07:15 Cholesterol 149 mg/dL (130-200) 10/20/17 07:15 LDL Cholesterol Direct 77 mg/dL (0-129) 10/20/17 07:15 HDL Cholesterol 34 mg/dL (29-60) 10/20/17 07:15 TSH 3rd Generation 3.41 mIU/mL (0.46-4.68) 10/20/17 07:15 Urine Color Yellow (YELLOW) 10/17/17 20:46 Urine Appearance Clear (CLEAR) 10/17/17 20:46 Urine pH 6.0 (4.7-8.0) 10/17/17 20:46 Ur Specific [place] 1.010 (1.005-1.035) 10/17/17 20:46 Urine Protein Negative mg/dL (<30 mg/dL) 10/17/17 20:46 Urine Glucose (UA) Negative mg/dL (NEGATIVE) 10/17/17 20:46 Urine Ketones Negative mg/dL (NEGATIVE) 10/17/17 20:46 Urine Blood Trace-intact (NEGATIVE) H 10/17/17 20:46 Urine Nitrate Negative (NEGATIVE) 10/17/17 20:46 Urine Bilirubin Negative (NEGATIVE) 10/17/17 20:46 Urine Urobilinogen 0.2 E.U./dL (<1 E.U./dL) 10/17/17 20:46 Ur Leukocyte Esterase Moderate Gretchen/uL (NEGATIVE) H 10/17/17 20:46 Urine RBC 2 - 5 /hpf (0-2) 10/17/17 20:46 Urine WBC 15 - 20 /hpf (0-6) 10/17/17 20:46 Ur Epithelial Cells 4 - 5 /hpf (0-5) 10/17/17 20:46 Amorphous Sediment Few 10/17/17 20:46 Urine Bacteria Mod (NEG) 10/17/17 20:46 - Hospital Course Hospital Course: 71 yr female resident w/ history of Hyperlipidemia, CAD, osteoporosis, TIA, hysterectomy, R breast surgery, Colitis & HTN. She reports feeling abdominal pain LLQ and not taking her medications for the past 3 days. Pt admitted to [facility] [place] for near syncope, UTI & leukocytosis. Urine culture (+) Staphylocococus epidermis. s/p IV Rocephin & vancomycin. Discharged home on PO augmentin. Pt will f/u with Cardio for stress test. Pt will f/u with GI for endoscopy/colonoscopy. Pt will f/u in our office. Reviewed: ECHO = borderline to mild concentric LVH, EF 55-60% Carotid Artery US = bilateral 20-39% proximal ICA stenosis CXR = WNL CT abd/pelvis = mod amount of stool in colon, nonspecific fluid stomach, small bowel loops, ileus vs. gastroenteritis vs. slow transit vs. peristalsis, bladder distension CT head = mild cerebral & cerebellar volume loss, minimal hypodensity in periventricular cerebral white matter ECG = [place], NSR, min voltage criteria LVH, maybe normal variant - Date & Time of H&P Date of H&P: 10/20/17 Time of H&P: 09:30 Discharge Exam - Head Exam Head Exam: ATRAUMATIC, NORMAL INSPECTION, NORMOCEPHALIC Discharge Plan - Discharge Medications Prescriptions: Amoxicillin/Clavulanate [Augmentin 875 MG-125 MG Tab] 1 tab PO Q12 #14 tab - Follow Up Plan Condition: STABLE Disposition: HOME/ ROUTINE Instructions: Constipation (DC), Constipation (GEN), Dehydration (DC), Dehydration (GEN), Urinary Tract Infection in Women (DC), Urinary Tract Infection in Men (DC), Leukocytosis (DC), Leukocytosis (GEN), Dysuria (GEN) Additional Instructions: Please take all perception medication as ordered till completely finished. Follow up with primary care n Physician in 1 week. If you experience a high temperature pain when urinating or nausea contact your primary care physician and go to the nearest Emergency room. <Nely Tavera - Last Filed: 10/20/17 21:07> Provider - Provider Date of Admission: 10/19/17 12:31 Attending physician: Nely Tavera MD Hospital Course - Lab Results Lab Results: Most Recent Lab Values WBC 9.4 10^3/ul (4.5-11.0) 10/20/17 07:15 RBC 4.45 10^6/uL (3.5-6.1) 10/20/17 07:15 Hgb 11.7 g/dL (12.0-16.0) L 10/20/17 07:15 Hct 36.2 % (36.0-48.0) 10/20/17 07:15 MCV 81.3 fl (80.0-105.0) 10/20/17 07:15 MCH 26.3 pg (25.0-35.0) 10/20/17 07:15 MCHC 32.3 g/dl (31.0-37.0) 10/20/17 07:15 RDW 15.0 % (11.5-14.5) H 10/20/17 07:15 Plt Count 200 10^3/uL (120.0-450.0) 10/20/17 07:15 MPV 10.5 fl (7.0-11.0) 10/20/17 07:15 Gran % 70.8 % (50.0-68.0) H 10/20/17 07:15 Lymph % (Auto) 21.9 % (22.0-35.0) L 10/20/17 07:15 [place] % (Auto) 5.3 % (1.0-6.0) 10/20/17 07:15 Eos % (Auto) 1.8 % (1.5-5.0) 10/20/17 07:15 Baso % (Auto) 0.2 % (0.0-3.0) 10/20/17 07:15 Gran # 6.66 (1.4-6.5) H 10/20/17 07:15 Lymph # (Auto) 2.1 (1.2-3.4) 10/20/17 07:15 [place] # (Auto) 0.5 (0.1-0.6) 10/20/17 07:15 Eos # (Auto) 0.2 (0.0-0.7) 10/20/17 07:15 Baso # (Auto) 0.02 K/mm3 (0.0-2.0) 10/20/17 07:15 PT 11.8 SECONDS (9.4-12.5) 10/17/17 20:22 INR 1.03 (0.93-1.08) 10/17/17 20:22 APTT 25.9 Seconds (25.1-36.5) 10/17/17 20:22 Sodium 142 mmol/L (132-148) 10/20/17 07:15 Potassium 4.2 mmol/L (3.6-5.0) 10/20/17 07:15 Chloride 108 mmol/L (98-107) H 10/20/17 07:15 Carbon Dioxide 26 mmol/L (21-33) 10/20/17 07:15 Anion Gap 12 (10-20) 10/20/17 07:15 BUN 16 mg/dL (7-21) 10/20/17 07:15 Creatinine 0.9 mg/dl (0.7-1.2) 10/20/17 07:15 Est GFR ( Amer) > 60 10/20/17 07:15 Est GFR (Non-Af Amer) > 60 10/20/17 07:15 Random Glucose 104 mg/dL (70-110) 10/20/17 07:15 Hemoglobin A1c 6.3 % (4.2-6.5) 10/20/17 07:15 Calcium 9.6 mg/dL (8.4-10.5) 10/20/17 07:15 Phosphorus 3.8 mg/dL (2.5-4.5) 10/20/17 07:15 Magnesium 1.9 mg/dL (1.7-2.2) 10/20/17 07:15 Iron 56 ug/dL (45-180) 10/20/17 07:15 TIBC 287 ug/dL (265-497) 10/20/17 07:15 % Saturation 20 % (20-55) 10/20/17 07:15 Total Bilirubin 0.4 mg/dL (0.2-1.3) 10/20/17 07:15 AST 33 U/L (14-36) 10/20/17 07:15 ALT 32 U/L (7-56) 10/20/17 07:15 Alkaline Phosphatase 92 U/L (38-126) 10/20/17 07:15 Lactate Dehydrogenase 387 U/L (333-699) 10/17/17 20:22 Total Creatine Kinase 29 U/L (35-230) L 10/17/17 20:22 Troponin I < 0.01 ng/mL 10/17/17 20:22 Total Protein 6.7 g/dL (5.8-8.3) 10/20/17 07:15 Albumin 3.5 g/dL (3.0-4.8) 10/20/17 07:15 Globulin 3.2 gm/dL 10/20/17 07:15 Albumin/Globulin Ratio 1.1 (1.1-1.8) 10/20/17 07:15 Triglycerides 165 mg/dL (35-160) H 10/20/17 07:15 Cholesterol 149 mg/dL (130-200) 10/20/17 07:15 LDL Cholesterol Direct 77 mg/dL (0-129) 10/20/17 07:15 HDL Cholesterol 34 mg/dL (29-60) 10/20/17 07:15 Vitamin B12 431 pg/mL (239-931) 10/20/17 07:15 Folate > 20.0 ng/mL 10/20/17 07:15 TSH 3rd Generation 3.41 mIU/mL (0.46-4.68) 10/20/17 07:15 Urine Color Yellow (YELLOW) 10/17/17 20:46 Urine Appearance Clear (CLEAR) 10/17/17 20:46 Urine pH 6.0 (4.7-8.0) 10/17/17 20:46 Ur Specific [place] 1.010 (1.005-1.035) 10/17/17 20:46 Urine Protein Negative mg/dL (<30 mg/dL) 10/17/17 20:46 Urine Glucose (UA) Negative mg/dL (NEGATIVE) 10/17/17 20:46 Urine Ketones Negative mg/dL (NEGATIVE) 10/17/17 20:46 Urine Blood Trace-intact (NEGATIVE) H 10/17/17 20:46 Urine Nitrate Negative (NEGATIVE) 10/17/17 20:46 Urine Bilirubin Negative (NEGATIVE) 10/17/17 20:46 Urine Urobilinogen 0.2 E.U./dL (<1 E.U./dL) 10/17/17 20:46 Ur Leukocyte Esterase Moderate Gretchen/uL (NEGATIVE) H 10/17/17 20:46 Urine RBC 2 - 5 /hpf (0-2) 10/17/17 20:46 Urine WBC 15 - 20 /hpf (0-6) 10/17/17 20:46 Ur Epithelial Cells 4 - 5 /hpf (0-5) 10/17/17 20:46 Amorphous Sediment Few 10/17/17 20:46 Urine Bacteria Mod (NEG) 10/17/17 20:46 HSV I IgG Ab 26.70 index H 10/18/17 18:26 HSV II IgG 16.00 index H 10/18/17 18:26 - Hospital Course Hospital Course: pt is seen and examined at bed side . looking comfortable , agreed all above , chart . meds and labs noted . dc home .meds at bed side . f/u pcp . will f/u
[2017-10-20 13:20] VITALS: BP 107/57; PULSE 66; TEMP 98.1
--- NOTE | 2017-10-20 13:48 | PN ---
DATE: 10/20/2017 LOCATION: The patient in room 376, bed 2. REASON FOR CONSULTATION: Abdominal pain, near syncope and hyperlipidemia. SUBJECTIVE: The patient is conscious and alert now. Denies any chest pain, shortness of breath or palpitations. Denies any nausea or vomiting, but complaining about severe diarrhea now. Denies any bleeding in the stool. PHYSICAL EXAMINATION: VITAL SIGNS: Blood pressure 110/60, respirations 18, pulse 73, temperature 98.0. HEENT: Head is normocephalic. Eyes: Pupils normal. Conjunctivae normal. Nose and throat normal. NECK: JVP low. Carotids equal. THORAX: AP diameter normal. LUNGS: Clear. CARDIOVASCULAR: S 1 and S2. ABDOMEN: Soft. No organomegaly. Bowel sounds normal. EXTREMITIES: No clubbing. No cyanosis. LABORATORY DATA: WBC 9.4, hemoglobin 11.7, hematocrit 36.2 and platelet 200. Sodium 142; potassium 4.2; BUN 16; creatinine 0.9; AST and ALT normal; calcium, phosphorus and magnesium normal; total protein 6.7; albumin 3.5. Troponin less than 0.01. TSH normal at 3.41. DIAGNOSES: Abdominal pain, atypical chest pain, hypertension, hyperlipidemia and dizziness. Echo was done, 10/19/2017, showed left ventricular size normal, [id number] concentric left ventricular hypertrophy, left ventricular ejection fraction normal at 55% to 60%, trace mitral regurgitation, [id number] tricuspid regurgitation, right ventricular systolic pressure 31 mmHg. No vegetation, no thrombus. Diarrhea, rule out Clostridium difficile toxin. RECOMMENDATION AND PLAN: Patient's blood cultures are so far negative. We will send stool for C. diff antibody-antigen. We will also sent stool for culture and sensitivity. The patient on aspirin 81 mg daily. We will put to hold on Colace because the patient having diarrhea, losartan 25 daily, atorvastatin 10 mg daily, Plavix 75 mg daily, ceftriaxone 1 g IV daily, IV fluid therapy, vancomycin 1 g q. 12 hours. We will follow. Andrey Myers MD
[2017-10-20 14:10] LABS: FOLATE > 20.0 ng/mL
--- NOTE | 2017-10-20 15:53 | CP.PCM.PN ---
Subjective - Date & Time of Evaluation Date of Evaluation: 10/20/17 Time of Evaluation: 11:10 - Subjective Subjective: Comfortable, urinary symptoms are better, no fevers, no nausea. Objective - Vital Signs/Intake and Output Vital Signs (last 24 hours): Temp Pulse Resp BP Pulse Ox 98.0 F 73 18 110/60 100 10/20/17 05:51 10/20/17 10:19 10/20/17 05:51 10/20/17 10:19 10/20/17 05:51 Intake and Output: 10/20/17 10/20/17 06:59 18:59 Intake Total 1430 Balance 1430 - Medications Medications: Current Medications Acetaminophen (Tylenol 325mg Tab) 650 mg PO Q4H PRN PRN Reason: Pain, Mild (1-3) Last Admin: 10/19/17 09:55 Dose: 650 mg Aspirin (Aspirin Chewable) 81 mg PO DAILY [facility] Last Admin: 10/20/17 10:16 Dose: 81 mg Atorvastatin Calcium (Lipitor) 10 mg PO DIN [facility] Last Admin: 10/19/17 17:18 Dose: 10 mg Clopidogrel Bisulfate (Plavix) 75 mg PO DAILY [facility] Last Admin: 10/20/17 10:17 Dose: 75 mg Docusate Sodium (Colace) 100 mg PO BID [facility] Last Admin: 10/20/17 10:18 Dose: Not Given Sodium Chloride (Sodium Chloride 0.9%) 1,000 mls @ 100 mls/hr IV .Q10H [facility] Last Admin: 10/20/17 04:59 Dose: 100 mls/hr Ceftriaxone Sodium (Rocephin 1 Gram Ivpb) 1 gm in 100 mls @ 100 mls/hr IVPB DAILY [facility] PRN Reason: Protocol Last Admin: 10/20/17 10:17 Dose: 100 mls/hr Vancomycin HCl (Vancomycin 1gm) 1 gm in 250 mls @ 167 mls/hr IVPB Q12H [facility] PRN Reason: Protocol Stop: 10/26/17 17:46 Last Admin: 10/20/17 04:58 Dose: 167 mls/hr Losartan Potassium (Cozaar) 25 mg PO DAILY [facility] Last Admin: 10/20/17 10:19 Dose: 25 mg Nitroglycerin (Nitrostat Sl Tab) 0.3 mg SL Q5M PRN PRN Reason: Other CHEST PAIN Polyethylene Glycol (Miralax) 17 gm PO BID [facility] Last Admin: 10/20/17 10:17 Dose: Not Given - Labs Labs: 10/20/17 07:15 10/20/17 07:15 PT 11.8 SECONDS (9.4-12.5) 10/17/17 20:22 INR 1.03 (0.93-1.08) 10/17/17 20:22 APTT 25.9 Seconds (25.1-36.5) 10/17/17 20:22 - Constitutional Appears: Non-toxic - Head Exam Head Exam: NORMAL INSPECTION - Neck Exam Neck Exam: absent: Meningismus - Respiratory Exam Respiratory Exam: Decreased Breath Sounds - Cardiovascular Exam Cardiovascular Exam: +S1, +S2 - GI/Abdominal Exam GI & Abdominal Exam: Soft. absent: Tenderness Assessment and Plan - Assessment and Plan (Free Text) Assessment: Assessment UTI with MSSE CAD dyslipidemia history of TIA osteoporosis HTN history of colitis Plan Can switch to PO Augmentin for another 7 days with follow up with PMD
--- NOTE | 2017-10-20 18:32 | CP.PCM.CON ---
<BhanuKayleigh - Last Filed: 10/20/17 18:25> History of Present Illness - History of Present Illness History of Present Illness: GI Consult Note _ Dr. Rodriguez 71 F with a PMHx of Hyperlipidemia, CAD, osteoporosis, TIA, Colitis & HTN. She reports feeling abdominal pain LLQ and not taking her medications for the past 3 days and subsequently feeling faint fatigue and like she was going to lose consciousness. Pt denied LOC. Pt found to have UTI. Echo found borderline to mild concentric LVH, EF 55-60%. Carotid Artery US = bilateral 20-39% proximal ICA stenosis. EKG: NSR. CT head = mild cerebral & cerebellar volume loss, minimal hypodensity in periventricular cerebral white matter. CT abd/pelvis = mod amount of stool in colon, nonspecific fluid stomach, small bowel loops, ileus vs. gastroenteritis vs. slow transit vs. peristalsis, bladder distension. Pt seen and examined at bedside with complaints of a recurrent rash on her R buttock. Pt denied abdominal pain, was tolerating po intake and still experiencing loose stools x 4 today. Pt denies fever, chills, sob, nausea, vomiting, diarrhea, constipation, shortness of breath, chest pain, or urinary symptoms. PMHx: Hyperlipidemia, CAD, osteoporosis, TIA, Colitis & HTN PSHx: hysterectomy, R breast surgery SHx: Denied FamHx:Noncontributory Meds: MAR reviewed Allergies: NKDA Review of Systems - Review of Systems Review of Systems: as per HPI otherwise negative Past Patient History - Past Social History Smoking Status: Never Smoked - CARDIAC Hx Cardiac Disorders: Yes - MUSCULOSKELETAL/RHEUMATOLOGICAL Hx Falls: Yes - GASTROINTESTINAL Hx Colitis: Yes Other/Comment: colitis - PSYCHIATRIC Hx Substance Use: No - SURGICAL HISTORY Hx Hysterectomy: Yes - ANESTHESIA Hx Anesthesia: Yes Hx Anesthesia Reactions: No Hx Malignant Hyperthermia: No Meds Home Medications: Home Medication List Medication Instructions Recorded Confirmed Type Amoxicillin/Clavulanate [Augmentin 1 tab PO Q12 #14 tab 10/20/17 Rx 875 MG-125 MG Tab] Allergies/Adverse Reactions: Allergies Allergy/AdvReac Type Severity Reaction Status Date / Time No Known Allergies Allergy Verified 06/20/15 03:42 Physical Exam - Constitutional Appears: No Acute Distress - Head Exam Head Exam: ATRAUMATIC, NORMAL INSPECTION, NORMOCEPHALIC - Eye Exam Eye Exam: EOMI, Normal appearance, PERRL Pupil Exam: NORMAL ACCOMODATION, PERRL - ENT Exam ENT Exam: Mucous Membranes Moist, Normal Exam - Neck Exam Neck exam: Positive for: Normal Inspection - Respiratory Exam Respiratory Exam: Clear to Auscultation Bilateral, NORMAL BREATHING PATTERN - Cardiovascular Exam Cardiovascular Exam: REGULAR RHYTHM, +S1, +S2 - GI/Abdominal Exam GI & Abdominal Exam: Normal Bowel Sounds, Soft. absent: Tenderness - Neurological Exam Neurological exam: Alert, CN II-XII Intact, Normal Gait, Oriented x3, Reflexes Normal - Psychiatric Exam Psychiatric exam: Normal Affect, Normal Mood - Skin Skin Exam: Dry, Intact, Normal Color, Warm Results - Vital Signs Recent Vital Signs: Last Vital Signs Temp 98.1 F 10/20/17 12:00 Pulse 66 10/20/17 12:00 Resp 18 10/20/17 12:00 BP 107/57 L 10/20/17 12:00 Pulse Ox 100 10/20/17 10:00 - Labs Result Diagrams: 10/20/17 07:15 10/20/17 07:15 Labs: Laboratory Results - last 24 hr 10/20/17 10/20/17 10/20/17 07:15 07:15 07:15 WBC RBC Hgb Hct MCV MCH MCHC RDW Plt Count MPV Gran % Lymph % (Auto) [place] % (Auto) Eos % (Auto) Baso % (Auto) Gran # Lymph # (Auto) [place] # (Auto) Eos # (Auto) Baso # (Auto) Sodium 142 Potassium 4.2 Chloride 108 H Carbon Dioxide 26 Anion Gap 12 BUN 16 Creatinine 0.9 Est GFR ( Amer) > 60 Est GFR (Non-Af Amer) > 60 Random Glucose 104 Hemoglobin A1c 6.3 Calcium 9.6 Phosphorus 3.8 Magnesium 1.9 Iron 56 TIBC 287 % Saturation 20 Total Bilirubin 0.4 AST 33 ALT 32 Alkaline Phosphatase 92 Total Protein 6.7 Albumin 3.5 Globulin 3.2 Albumin/Globulin Ratio 1.1 Triglycerides 165 H Cholesterol 149 LDL Cholesterol Direct 77 HDL Cholesterol 34 Vitamin B12 431 Folate > 20.0 TSH 3rd Generation 10/20/17 10/20/17 07:15 07:15 WBC 9.4 RBC 4.45 Hgb 11.7 L Hct 36.2 MCV 81.3 MCH 26.3 MCHC 32.3 RDW 15.0 H Plt Count 200 MPV 10.5 Gran % 70.8 H Lymph % (Auto) 21.9 L [place] % (Auto) 5.3 Eos % (Auto) 1.8 Baso % (Auto) 0.2 Gran # 6.66 H Lymph # (Auto) 2.1 [place] # (Auto) 0.5 Eos # (Auto) 0.2 Baso # (Auto) 0.02 Sodium Potassium Chloride Carbon Dioxide Anion Gap BUN Creatinine Est GFR ( Amer) Est GFR (Non-Af Amer) Random Glucose Hemoglobin A1c Calcium Phosphorus Magnesium Iron TIBC % Saturation Total Bilirubin AST ALT Alkaline Phosphatase Total Protein Albumin Globulin Albumin/Globulin Ratio Triglycerides Cholesterol LDL Cholesterol Direct HDL Cholesterol Vitamin B12 Folate TSH 3rd Generation 3.41 Assessment & Plan - Assessment and Plan (Free Text) Assessment: Dehydration CAD Dyslipidemia TIA hx HTN leukocytosis UTI Constipation Hematuria Near syncope Gastroenteritis Plan: IV Rocephin & vancomycin, now dc Continue PO Augmentin for another 7 days, as per ID Fu with GI outpatient for elective EGD/Colonoscopy f/u with Cardio for stress test. <Michael,Kovil V - Last Filed: 10/22/17 21:06> Results - Vital Signs Recent Vital Signs: Last Vital Signs Temp 98.1 F 10/20/17 12:00 Pulse 66 10/20/17 12:00 Resp 18 10/20/17 12:00 BP 107/57 L 10/20/17 12:00 Pulse Ox 100 10/20/17 10:00 - Labs Result Diagrams: 10/20/17 07:15 10/20/17 07:15 Labs: Laboratory Results - last 24 hr 10/20/17 10/20/17 10/20/17 07:15 07:15 07:15 WBC RBC Hgb Hct MCV MCH MCHC RDW Plt Count MPV Gran % Lymph % (Auto) [place] % (Auto) Eos % (Auto) Baso % (Auto) Gran # Lymph # (Auto) [place] # (Auto) Eos # (Auto) Baso # (Auto) Sodium 142 Potassium 4.2 Chloride 108 H Carbon Dioxide 26 Anion Gap 12 BUN 16 Creatinine 0.9 Est GFR ( Amer) > 60 Est GFR (Non-Af Amer) > 60 Random Glucose 104 Hemoglobin A1c 6.3 Calcium 9.6 Phosphorus 3.8 Magnesium 1.9 Iron 56 TIBC 287 % Saturation 20 Total Bilirubin 0.4 AST 33 ALT 32 Alkaline Phosphatase 92 Total Protein 6.7 Albumin 3.5 Globulin 3.2 Albumin/Globulin Ratio 1.1 Triglycerides 165 H Cholesterol 149 LDL Cholesterol Direct 77 HDL Cholesterol 34 Vitamin B12 431 Folate > 20.0 TSH 3rd Generation 10/20/17 10/20/17 07:15 07:15 WBC 9.4 RBC 4.45 Hgb 11.7 L Hct 36.2 MCV 81.3 MCH 26.3 MCHC 32.3 RDW 15.0 H Plt Count 200 MPV 10.5 Gran % 70.8 H Lymph % (Auto) 21.9 L [place] % (Auto) 5.3 Eos % (Auto) 1.8 Baso % (Auto) 0.2 Gran # 6.66 H Lymph # (Auto) 2.1 [place] # (Auto) 0.5 Eos # (Auto) 0.2 Baso # (Auto) 0.02 Sodium Potassium Chloride Carbon Dioxide Anion Gap BUN Creatinine Est GFR ( Amer) Est GFR (Non-Af Amer) Random Glucose Hemoglobin A1c Calcium Phosphorus Magnesium Iron TIBC % Saturation Total Bilirubin AST ALT Alkaline Phosphatase Total Protein Albumin Globulin Albumin/Globulin Ratio Triglycerides Cholesterol LDL Cholesterol Direct HDL Cholesterol Vitamin B12 Folate TSH 3rd Generation 3.41 Attending/Attestation - Attestation I have personally seen and examined this patient.: Yes I have fully participated in the care of the patient.: Yes I have reviewed all pertinent clinical information: Yes Notes (Text): clinically much improved. On examination abdomen soft no mass Continue antibiotics as per ID. Recommend Elective EGD and colonoscopy 10/20/17 23:57 10/22/17 21:05
[2017-10-20] MEDS ORDERED: Amoxicillin-Clav 875-125 mg Tab PO SCH (22:00)
== END 2017-10-20 14:34 | disposition home or self-care (01) | DRG 690 ==
LOC: ED 20:03 → ERH 10-18 02:04 → 3RSO 10-18 03:46 → OBSVTOIN 10-19 12:31
PROVIDERS: ADMIT Internal Medicine; ATTEND Internal Medicine
DX: N39.0 Urinary tract infection, site not specified (principal); I65.23 Occlusion and stenosis of bilateral carotid arteries; E86.0 Dehydration; E78.00 Pure hypercholesterolemia, unspecified; I25.10 Atherosclerotic heart disease of native coronary artery without angina pectoris; M81.0 Age-related osteoporosis without current pathological fracture; R21 Rash and other nonspecific skin eruption; K59.00 Constipation, unspecified; K52.9 Noninfective gastroenteritis and colitis, unspecified; E78.5 Hyperlipidemia, unspecified; K20.9 Esophagitis, unspecified; I10 Essential (primary) hypertension; K44.9 Diaphragmatic hernia without obstruction or gangrene; Z86.73 Personal history of transient ischemic attack (TIA), and cerebral infarction without residual deficits; Z87.440 Personal history of urinary (tract) infections; Z86.010 Personal history of colon polyps; Z90.710 Acquired absence of both cervix and uterus; Z79.02 Long term (current) use of antithrombotics/antiplatelets; Z79.82 Long term (current) use of aspirin

== ENCOUNTER 2018-04-24 15:37 | Emergency (ER) | payer MEDICARE ==
[2018-04-24 15:48] VITALS: BMI 25.0
[2018-04-24 15:51] VITALS: RESP 18; TEMP 98.9
[2018-04-24] MEDS ORDERED: Sodium Chloride 0.9% 1,000 ML IV STA (16:13)
--- NOTE | 2018-04-24 16:54 | ED PDOC ---
Arrival/HPI - General Chief Complaint: Headache Time Seen by Provider: 04/24/18 16:04 Historian: Patient, Family - History of Present Illness Narrative History of Present Illness (Text): 72y/o F w/ h/o nephropathy presenting to the ED accompanied by her family for evaluation of a pressure in her head for the past 4 days. She states the symptoms started while at work with associated with blurry vision which has now resolved. She reports the pressure was 8-9/10 at its most severe and currently is 3/10. She also reports a tingling sensation in her head, hands and feet which is chronic in nature. Patient otherwise denies any photophobia, phonophobia, dizziness, tinnitus, weakness, numbness, chest pain, or abdominal pain. She reports mild nausea but denies any emesis. Patient also states she has chronic shortness of breath. Patient's family is at bedside and states she is at her baseline with normal affect, no dysarthrias, facial asymetry or changes in gait. PMD: Dr. Ramos Neurologist: Dr. Go Time/Duration: Other (3 days) Symptom Onset: Gradual Symptom Course: Unchanged Quality: Pressure, Throbbing Activities at Onset: Rest Context: Home Past Medical History - Provider Review Nursing Documentation Reviewed: Yes - Travel History Have you recently traveled outside [place] w/in the past 3 mons?: No - Infectious Disease Hx of Infectious Diseases: None - Reproductive Menopause: Yes - Cardiac Hx Cardiac Disorders: No - Pulmonary Hx Respiratory Disorders: No - Neurological Hx Neurological Disorder: Yes Hx Transient Ischemic Attacks (TIA): Yes - HEENT Hx HEENT Disorder: No - Renal Hx Renal Disorder: No - Endocrine/Metabolic Hx Endocrine Disorders: No - Hematological/Oncological Hx Blood Disorders: No - Integumentary Hx Dermatological Disorder: No - Musculoskeletal/Rheumatological Hx Musculoskeletal Disorders: Yes Hx Falls: Yes Hx Rheumatoid Arthritis: Yes - Gastrointestinal Hx Gastrointestinal Disorders: Yes Hx Colitis: Yes Other/Comment: colitis - Genitourinary/Gynecological Hx Genitourinary Disorders: No - Psychiatric Hx Psychophysiologic Disorder: Yes Hx Anxiety: Yes Hx Substance Use: No - Surgical History Hx Hysterectomy: Yes - Anesthesia Hx Anesthesia: Yes Hx Anesthesia Reactions: No Hx Malignant Hyperthermia: No Family/Social History - Physician Review Nursing Documentation Reviewed: Yes Family/Social History: No Known Family HX Smoking Status: Never Smoked Hx Alcohol Use: No Hx Substance Use: No Allergies/Home Meds Allergies/Adverse Reactions: Allergies No Known Allergies Allergy (Verified 04/24/18 15:48) Home Medications: Home Meds Medication Instructions Recorded Confirmed Levomefolate/B6/B12/Algal Oil 1 tab PO DAILY 04/24/18 04/24/18 [Metanx Capsule] Review of Systems - Physician Review All systems were reviewed & negative as marked: Yes - Review of Systems Constitutional: absent: Fevers Eyes: absent: Vision Changes, Photophobia ENT: absent: Hearing Changes, Tinnitus Respiratory: SOB (chronic) Cardiovascular: absent: Chest Pain Gastrointestinal: absent: Abdominal Pain Neurological: Headache (head pressure). absent: Dizziness, Focal Weakness, Gait Changes, Speech Changes, Facial Droop Physical Exam Vital Signs Temp Pulse Resp BP Pulse Ox 04/24/18 20:00 84 18 124/50 L 95 04/24/18 15:50 98.9 F 75 18 124/72 97 Temperature: Afebrile Blood Pressure: Normal Pulse: Regular Respiratory Rate: Normal Appearance: Positive for: Well-Appearing, Non-Toxic, Comfortable Pain Distress: None Mental Status: Positive for: Alert and Oriented X 3 - Systems Exam Head: Present: Atraumatic, Normocephalic Pupils: Present: PERRL Extroacular Muscles: Present: EOMI Conjunctiva: Present: Normal Mouth: Present: Moist Mucous Membranes Neck: Present: Normal Range of Motion Respiratory/Chest: Present: Clear to Auscultation, Good Air Exchange. No: Respiratory Distress, Accessory Muscle Use Cardiovascular: Present: Regular Rate and Rhythm, Normal S1, S2. No: Murmurs Abdomen: No: Tenderness, Distention, Peritoneal Signs Back: Present: Normal Inspection. No: CVA Tenderness Upper Extremity: Present: Normal Inspection, Normal ROM, Other (5/5 cdl a driver strength). No: Cyanosis, Edema Lower Extremity: Present: Normal Inspection, Normal ROM, Other (5/5 motor strength). No: Edema Neurological: Present: GCS=15, CN II-XII Intact, Speech Normal, Motor Func Grossly Intact (Finger to nose intact; no pronator drift), Normal Sensory Function Skin: Present: Warm, Dry, Normal Color. No: Rashes Psychiatric: Present: Alert, Oriented x 3, Normal Insight, Normal Concentration Medical Decision Making ED Course and Treatment: Impression: 72yo female comes to Emergency room for evaluation of head pressure/tingling discomfort Differential Diagnosis included but are not limited to: Tension AC TIA Migraine Anxiety Plan: -- Labs -- CTH -- IV Fluids -- Reglan --Toradol -- Reassess and disposition Prior Visits: Notes and results from previous visits were reviewed. Patient was last seen in Emergency room on 10/19/17 and was admitted for UTI, near-syncope Progress Notes: 04/24/18 18:40 Labs reveal slight leukocytosis of 11(no shift) with CTH negative for acute intracranial pathology. 04/24/18 19:07 Patient updated on blood work and states she has a history of anemia and had been aware of her elevated WBC. She reports she will follow up with her neurologist on Monday where she will inquire of MRI. She reports marked decrease in her headache. Scripts provided. She is stable for discharge. - Lab Interpretations Lab Results: 04/24/18 17:00 04/24/18 17:00 Lab Results 04/24/18 17:00: Sodium 141, Potassium 4.6, Chloride 105, Carbon Dioxide 28, Anion Gap 13, BUN 16, Creatinine 0.8, Est GFR ( Amer) > 60, Est GFR (Non- Af Amer) > 60, Random Glucose 155 H, Calcium 9.4, Total Bilirubin 0.2, AST 28, ALT 31, Alkaline Phosphatase 93, Troponin I < 0.01, Total Protein 7.2, Albumin 4.0, Globulin 3.2, Albumin/Globulin Ratio 1.3 04/24/18 17:00: WBC 11.2 H, RBC 4.39, Hgb 11.7 L, Hct 34.8 L, MCV 79.3 L, MCH 26.7, MCHC 33.6, RDW 15.2 H, Plt Count 235, MPV 10.5, Gran % 66.8, Lymph % (Auto ) 28.4, Hays % (Auto) 3.8, Eos % (Auto) 0.8 L, Baso % (Auto) 0.2, Gran # 7.46 H , Lymph # (Auto) 3.2, H[place] # (Auto) 0.4, Eos # (Auto) 0.1, Baso # (Auto) 0.02 - RAD Interpretation Narrative RAD Interpretations (Text): 04/24/18 18:10 CT Head w/o contrast IMPRESSION: No acute intracranial pathology identified. Radiology Orders: 04/24/18 16:13 HEAD W/O CONTRAST [CT] Stat - EKG Interpretation EKG Interpretation (Text): Sinus rhythm @ [address] elevation Normal QT interval No T-wave inversion - Medication Orders Current Medication Orders: Discontinued Medications Sodium Chloride (Sodium Chloride 0.9%) 1,000 mls @ 999 mls/hr IV .Q1H1M STA Stop: 04/24/18 17:13 Last Admin: 04/24/18 17:00 Dose: 999 mls/hr eMAR Start Stop Document 04/24/18 17:00 HI (Rec: 04/24/18 17:11 [id number] Intravenous Solution Start Date 04/24/18 Start Time 17:00 Metoclopramide HCl 10 mg/ (Sodium Chloride) 52 mls @ 200 mls/hr IVPB STAT STA Stop: 04/24/18 16:28 Last Admin: 04/24/18 17:08 Dose: 200 mls/hr eMAR Start Stop Document 04/24/18 17:08 HI (Rec: 04/24/18 17:11 [id number] Intravenous Solution Start Date 04/24/18 Start Time 17:00 Ketorolac Tromethamine (Toradol) 30 mg IVP STAT STA Stop: 04/24/18 18:39 - Scribe Statement The provider has reviewed the documentation as recorded by the Joycelyn Frances Provider Scribe Attestation: All medical record entries made by the Scribe were at my direction and personally dictated by me. I have reviewed the chart and agree that the record accurately reflects my personal performance of the history, physical exam, medical decision making, and the department course for this patient. I have also personally directed, reviewed, and agree with the discharge instructions and disposition. Disposition/Present on Arrival - Present on Arrival Any Indicators Present on Arrival: No History of DVT/PE: No History of Uncontrolled Diabetes: No Urinary Catheter: No History of Decub. Ulcer: No History Surgical Site Infection Following: None - Disposition Have Diagnosis and Disposition been Completed?: Yes Diagnosis: Headache Disposition: HOME/ ROUTINE Disposition Time: 19:10 Patient Plan: Discharge Patient Problems: Current Active Problems Problem Status Onset Headache Acute Condition: STABLE Discharge Instructions (ExitCare): Headache, Adult (DC) Prescriptions: Metoclopramide [Reglan] 5 mg PO PRN PRN 4 Days #4 tab PRN Reason: Headache Referrals: Yifan Brewster MD [Staff Provider] - Follow up with primary Forms: [employer] ([employer])
[2018-04-24 17:20] LABS: BASO # 0.02 K/mm3 (0.0-2.0); BASO % 0.2 % (0.0-3.0); EOS # 0.1 (0.0-0.7); EOS % 0.8 % (1.5-5.0); GRAN # 7.46 (1.4-6.5); GRAN % 66.8 % (50.0-68.0); HEMOGLOBIN 11.7 g/dL (12.0-16.0); LYMPH # 3.2 (1.2-3.4); LYMPH % 28.4 % (22.0-35.0); MEAN CELL VOLUME 79.3 fl (80.0-105.0); MEAN CORPUSCULAR HEMOGLOBIN 26.7 pg (25.0-35.0); MEAN CORPUSCULAR HGB CONC 33.6 g/dl (31.0-37.0); MEAN PLATELET VOLUME 10.5 fl (7.0-11.0); MONO # 0.4 (0.1-0.6); MONO % 3.8 % (1.0-6.0); RBC 4.39 10^6/uL (3.5-6.1); RED CELL DISTRIBUTION WIDTH 15.2 % (11.5-14.5); WHITE BLOOD COUNT 11.2 10^3/ul (4.5-11.0)
[2018-04-24 17:24] LABS: ALB/GLOB RATIO 1.3 (1.1-1.8); ALT/SGPT 31 U/L (7-56); AST/SGOT 28 U/L (14-36); BLOOD UREA NITROGEN 16 mg/dL (7-21); CALCIUM 9.4 mg/dL (8.4-10.5); GFR NON-AFRICAN AMERICAN > 60
[2018-04-24 17:35] LABS: TROPONIN I < 0.01 ng/mL
--- NOTE | 2018-04-24 18:04 | CT ---
Date of service: 04/24/2018 PROCEDURE: CT HEAD WITHOUT CONTRAST. HISTORY: headache COMPARISON: Noncontrast head CT performed 10/18/17 TECHNIQUE: Axial computed tomography images were obtained through the head/brain without intravenous contrast. Radiation dose: Total exam DLP = 823.77 mGy-cm. This CT exam was performed using one or more of the following dose reduction techniques: Automated exposure control, adjustment of the mA and/or kV according to patient size, and/or use of iterative reconstruction technique. FINDINGS: HEMORRHAGE: No intracranial hemorrhage. BRAIN: No mass effect or edema. The burrell-white matter differentiation appears intact. Please note that MRI with diffusion imaging is more sensitive in the detection of acute ischemic event. VENTRICLES: No hydrocephalus. CALVARIUM: Unremarkable. PARANASAL SINUSES: Unremarkable as visualized. No significant inflammatory changes. MASTOID AIR CELLS: Unremarkable as visualized. No inflammatory changes. OTHER FINDINGS: None. IMPRESSION: No acute intracranial pathology identified.
[2018-04-24 20:01] VITALS: BP 124/50; PULSE 84; O2SAT 95
--- NOTE | 2018-04-24 20:25 | CARD ---
APPROVED REPORT Date of service: 04/24/2018 EKG Measurement Heart [id number] <Conclusion> Poor data quality, interpretation may be adversely affected Normal sinus rhythm Minimal voltage criteria for LVH, may be normal variant Borderline ECG
== END 2018-04-24 19:45 | disposition home or self-care (01) ==
LOC: ED 15:37
DX: R51 Headache (principal); M06.9 Rheumatoid arthritis, unspecified; Z86.73 Personal history of transient ischemic attack (TIA), and cerebral infarction without residual deficits
CPT/HCPCS: 70450; 80053; 84484; 85025; 93005; 96374; 99285; J2765; J7030

== ENCOUNTER 2018-09-10 06:30 | Day surgery (SDC) | payer MEDICARE ==
[2018-09-10] MEDS ORDERED: Propofol 10 mg/ml Inj (20 ML) ONE (08:00)
[2018-09-10] MEDS ORDERED: Sodium Chloride 0.9% 1,000 ML IV SCH (08:30)
[2018-09-10 10:08] VITALS: BP 113/60; PULSE 60; RESP 16; TEMP 97.8; O2SAT 99
== END 2018-09-10 10:03 | disposition home or self-care (01) ==
LOC: ENDO 06:30
PROVIDERS: ATTEND Internal Medicine Gastroenterology
DX: K21.0 Gastro-esophageal reflux disease with esophagitis (principal); K29.50 Unspecified chronic gastritis without bleeding; K26.9 Duodenal ulcer, unspecified as acute or chronic, without hemorrhage or perforation; K25.9 Gastric ulcer, unspecified as acute or chronic, without hemorrhage or perforation; K29.80 Duodenitis without bleeding; K44.9 Diaphragmatic hernia without obstruction or gangrene; R13.10 Dysphagia, unspecified; G62.9 Polyneuropathy, unspecified; I10 Essential (primary) hypertension
CPT/HCPCS: 43239; 88305; 88342; J2001; J2704; J7030; J7040

== ENCOUNTER 2019-01-04 13:08 | Outpatient (CLI) | payer MEDICARE | END 2019-01-04 13:09 | disposition home or self-care (01) | LOC: RAD 13:08 ==